=== PATIENT | female | born 1935 | race Caucasian/White ===

== ENCOUNTER 2016-09-18 12:28 | Inpatient (IN) | payer MEDICARE ==
[~2016-09-18] VITALS: Ht 142.2 cm; Wt 84.9 kg
[2016-09-18] MEDS ORDERED: IPRATRPIUM/ALBUTEROL 0.5/2.5MG 3 ML NEBU. NEB ONE (13:15)
--- NOTE | 2016-09-18 13:30 | RAD ---
Portable chest, 09/18/2016: History: Shortness of breath, productive cough Comparison is made to a study from 11/16/2012. There has been a previous median sternotomy. A left-sided transvenous pacemaker remains in place with 2 leads extending into the right heart. The heart size and pulmonary vascularity are normal. No pulmonary infiltrates are seen. There is no evidence of pleural fluid. IMPRESSION: No acute cardiopulmonary abnormality is detected.
--- NOTE | 2016-09-18 14:10 | EKG ---
[facility] [address] [place] [address] Test Date: 2016-09-18 Test Time: 13:38:27 Pat Name: RYAN DOSHI Department: Room: Gender: F Medical Chief Technician: : [id number] Requested By: ELUALIA SOUTH Order Number: [id number] Reading MD: Watson Pryor Measurements Intervals Tullos Rate: 71 P: 0 WI: 128 QRS: -62 QRSD: 184 T: 115 QT: 432 QTc: 475 Interpretive Statements SINUS RHYTHM V-PACED Electronically Signed On 10-01-2016 11:57:45 CDT by Watson Pryor
[2016-09-18 14:33] LABS: BASO # 0.1 x10^3/uL (0.0-0.2); BASO % 1 % (0-3); EOS % 1 % (0-3); HEMATOCRIT 42.9 % (36.0-47.0); LYMPH # 3.2 x10^3/uL (1.0-4.8); LYMPH % 25 % (24-48); MEAN CORPUSCULAR HEMOGLOBIN 31 pg (25-35); MEAN CORPUSCULAR HGB CONC 33 g/dL (31-37); MEAN CORPUSCULAR VOLUME 95 fL (79-100); MONO % 8 % (0-9); NEUT % 65 % (31-73); PLATELET COUNT 161 x10^3/uL (140-400); RED BLOOD COUNT 4.53 x10^6/uL (3.50-5.40); RED CELL DISTRIBUTION WIDTH 13.8 % (11.5-14.5); WHITE BLOOD COUNT 12.6 x10^3/uL (4.0-11.0)
[2016-09-18 14:54] LABS: CREATININE 0.6 mg/dL (0.6-1.0); GFR 96.4
[2016-09-18 15:02] LABS: ALBUMIN 3.5 g/dL (3.4-5.0); DIRECT BILIRUBIN 0.2 mg/dL (0.0-0.2); TOTAL BILIRUBIN 0.4 mg/dL (0.2-1.0); TOTAL PROTEIN 6.7 g/dL (6.4-8.2)
[2016-09-18 15:23] LABS: CKMB MASS 0.8 ng/mL (0.0-3.6); CREATINE KINASE 41 U/L (26-192)
--- NOTE | 2016-09-18 15:37 | PHYS DOC ---
Past Medical History Past Medical History: Hypertension, Other Additional Past Medical Histor: hard of hearing, tremors Past Surgical History: Pacemaker Additional Past Surgical Histo: x4 bypass, kidney stone removal Alcohol Use: None Drug Use: None Adult General Chief Complaint Chief Complaint: SHORTNESS OF BREATH HPI HPI Patient is a 80 year old female brought to the ED by her daughter with the complaint of shortness of air and coughing for more than a week. She was seen a week ago in the doctor's office and given antibiotics and steroids, she has finished those, her symptoms are no better. She has CPAP at home with oxygen and has been using it although she usually is not on oxygen. She has a nebulizer at home and has been using it. She has never smoked, she has no history of COPD or asthma. PCP Dr. Manju Buckner Review of Systems Review of Systems Constitutional: Denies fever or chills [] Eyes: Denies change in visual acuity, redness, or eye pain [] HENT: Denies nasal congestion or sore throat [] Respiratory: As in history of present illness Cardiovascular: She has not had chest pain that sounds cardiac GI: Denies abdominal pain, nausea, vomiting, bloody stools or diarrhea [] : Denies dysuria or hematuria [] Musculoskeletal: Denies back pain or joint pain [] Integument: Denies rash or skin lesions [] Neurologic: Denies headache, focal weakness or sensory changes [] Current Medications Current Medications Current Medications Medications (Trade) Dose Ordered Sig/Wolfgang Start Time Stop Time Status Last Admin Dose Admin Albuterol/ Ipratropium (Duoneb) 3 ml 1X ONCE 09/18/16 13:15 09/18/16 13:16 DC 09/18/16 13:26 3 ML Allergies Allergies Allergies Coded Allergies Type Severity Reaction Last Updated Verified No Known Drug Allergies 04/05/14 No Physical Exam Physical Exam Constitutional: Well developed, well nourished, coughing very consistently, somewhat dyspneic at rest on the cart HENT: Normocephalic, atraumatic, bilateral external ears normal, nose normal. [] Eyes: conjunctiva normal, no discharge. [] Neck: Normal range of motion, no stridor. [] Cardiovascular:Heart rate regular rhythm, no murmur [] Lungs & Thorax: Moderately decreased breath sounds throughout, prolonged expiratory phase, expiratory wheezes throughout Abdomen: Bowel sounds normal, soft, no tenderness, no masses, no pulsatile masses. [] Skin: Warm, dry, no erythema, no rash. [] Back: No tenderness, no CVA tenderness. [] Extremities: No tenderness, no cyanosis, no clubbing, ROM intact, no edema. [] Neurologic: Alert and oriented X 3, normal motor function, normal sensory function, no focal deficits noted. [] Current Patient Data Vital Signs Vital Signs Date Time Temp Pulse Resp B/P Pulse Ox O2 Delivery O2 Flow Rate FiO2 09/18/16 15:20 68 20 125/69 95 Room Air 09/18/16 12:47 98.8 98.8 Lab Values Laboratory Tests Test 09/18/16 14:20 White Blood Count 12.6x10^3/uL (4.0-11.0) H Red Blood Count 4.53x10^6/uL (3.50-5.40) Hemoglobin 14.0g/dL (12.0-15.5) Hematocrit 42.9% (36.0-47.0) Mean Corpuscular Volume 95fL (79-100) Mean Corpuscular Hemoglobin 31pg (25-35) Mean Corpuscular Hemoglobin Concent 33g/dL (31-37) Red Cell Distribution Width 13.8% (11.5-14.5) Platelet Count 161x10^3/uL (140-400) Neutrophils (%) (Auto) 65% (31-73) Lymphocytes (%) (Auto) 25% (24-48) Monocytes (%) (Auto) 8% (0-9) Eosinophils (%) (Auto) 1% (0-3) Basophils (%) (Auto) 1% (0-3) Neutrophils # (Auto) 8.2x10^3uL (1.8-7.7) H Lymphocytes # (Auto) 3.2x10^3/uL (1.0-4.8) Monocytes # (Auto) 1.0x10^3/uL (0.0-1.1) Eosinophils # (Auto) 0.1x10^3/uL (0.0-0.7) Basophils # (Auto) 0.1x10^3/uL (0.0-0.2) Sodium Level 141mmol/L (136-145) Potassium Level 4.0mmol/L (3.5-5.1) Chloride Level 104mmol/L (98-107) Carbon Dioxide Level 28mmol/L (21-32) Anion Gap 9 (6-14) Blood Urea Nitrogen 20mg/dL (7-20) Creatinine 0.6mg/dL (0.6-1.0) Estimated GFR (Cockcroft-Gault) 96.4 Glucose Level 105mg/dL (70-99) H Calcium Level 10.0mg/dL (8.5-10.1) Total Bilirubin 0.4mg/dL (0.2-1.0) Direct Bilirubin 0.2mg/dL (0.0-0.2) Aspartate Amino Transferase (AST) 31U/L (15-37) Alanine Aminotransferase (ALT) 55U/L (14-59) Alkaline Phosphatase 58U/L (46-116) Creatine Kinase 41U/L (26-192) Creatine Kinase MB (Mass) 0.8ng/mL (0.0-3.6) Creatine Kinase MB Relative Index % (0-4) Troponin I Quantitative < 0.017ng/mL (0.000-0.055) DM-Iml-A-Type Natriuretic Peptide 280pg/mL (0-449) Total Protein 6.7g/dL (6.4-8.2) Albumin 3.5g/dL (3.4-5.0) Laboratory Tests 09/18/16 14:20 Laboratory Tests 09/18/16 14:20 EKG EKG 12-lead EKG read by me. Pacemaker paced rhythm with prolonged QRS and resulting repolarization abnormalities, no STEMI. 1338 [] Radiology/Procedures Radiology/Procedures One view portable chest x-ray read by me, clear, no infiltrates [] Course & Med Decision Making Course & Med Decision Making Pertinent Labs and Imaging studies reviewed. (See chart for details) 80-year-old female who just completed a course of antibiotics and steroids presents with continued cough and wheezing. She has no history of COPD or asthma. She was given DuoNeb nebulized treatment and states it didn't help much but she did stop coughing and she does appear to be more comfortable. Although she has no history of COPD or asthma, she is wheezing and I think we should treat her as such. She was given IV Solu-Medrol in the ED. I discussed the case with Dr. Figueroa, [facility], who will admit the patient. I wrote bridge orders. [] Dragon Disclaimer Dragon Disclaimer This electronic medical record was generated, in whole or in part, using a voice recognition dictation system. Departure Departure Impression: Primary Impression: Dyspnea Disposition: ADMITTED INPATIENT Admitting Physician: Bahman Figueroa Condition: STABLE Referrals: MANJU BUCKNER MD (PCP) EULALIA SOUTH MD Sep 18, 2016 15:37
[2016-09-18] MEDS ORDERED: methylPREDNISolone SOD SUCC PF 125 MG/2 ML VIAL. IV ONE (15:45)
[2016-09-18] MEDS ORDERED: IOHEXOL 300 MG/ML 75 ML VIAL IV ONE (16:00)
--- NOTE | 2016-09-18 16:36 | RAD ---
CT study of the chest with contrast Indications: Cough for 3 days with shortness of air. Dyspnea. Comparison: Chest CT dated May 04, 2012. Technique: After IV infusion of 75 mL of Omnipaque 300, helical CT scanning of the chest was performed. PQRS Compliance Statement: One or more of the following individualized dose reduction techniques were utilized for this examination: 1. Automated exposure control 2. Adjustment of the mA and/or kV according to patient size 3. Use of iterative reconstruction technique Findings: There is ectasia of the ascending aorta measuring 4 cm in greatest AP or transverse dimension. This has decreased in size. The caliber was aneurysmal previously measuring up to 5.5 cm. The heart size is at the upper limits of normal. A sternotomy and postoperative changes of the heart are evident. No pericardial effusion is seen. No enlarged thoracic lymphadenopathy is seen. A small hiatal hernia is seen. No adrenal mass is evident. Gallstones are seen. Infrarenal abdominal aortic aneurysm is seen. This is not completely visualized in this study but it measures at least 5.1 cm in AP dimension. This appears to have increased in size. No pleural effusion or pneumothorax is seen. No lung consolidation is seen. Mild atelectasis of the posterior left costophrenic angle is seen. A granuloma of the right middle lobe is seen. The proximal bronchial tree is patent. No osteolytic process is seen. IMPRESSION: Previously seen aneurysm of the ascending aorta has decreased significantly in size and now is considered only ectatic measuring up to 4 cm in greatest AP or transverse dimension. However, there has been increase in size in the infrarenal abdominal aortic aneurysm measuring up to a least 5.1 cm in AP dimension. However, this aneurysm is not completely seen on this study. No acute lung infiltrate. Cholelithiasis.. Small hiatal hernia.
[2016-09-18] MEDS: IPRATRPIUM/ALBUTEROL 0.5/2.5MG 3 ML NEBU. NEB SCH ×2 (17:06→21:16)
--- NOTE | 2016-09-18 17:28 | PDOC1 ---
History and Physical Current Problem List Problem List Problems Medical Problems: (1) Dyspnea Status: Acute Current Medications Current Medications Current Medications Medications (Trade) Dose Ordered Sig/Wolfgang Start Time Stop Time Status Last Admin Dose Admin Albuterol/ Ipratropium (Duoneb) 3 ml RTQID 09/18/16 16:00 09/19/16 15:59 09/18/16 17:06 3 ML Iohexol (Omnipaque 300 Mg/ml) 75 ml 1X ONCE 09/18/16 16:00 09/18/16 16:01 DC 09/18/16 16:09 75 ML Methylprednisolone Sodium Succinate (Solu-Medrol 125mg Vial) 125 mg 1X ONCE 09/18/16 15:45 09/18/16 15:46 DC 09/18/16 15:45 125 MG Allergies Allergies Allergies Coded Allergies Type Severity Reaction Last Updated Verified No Known Drug Allergies 04/05/14 No ROS Review of System CONSTITUTIONAL: No fever or chills EYES: No recent changes SKIN: No rash or itching CARDIOVASCULAR: No chest pain, syncope, palpitations, or edema RESPIRATORY: SOB or cough GASTROINTESTINAL: No nausea, vomiting or abdominal pain NEUROLOGICAL: No headaches or weakness ENDOCRINE: No cold or heat intolerance GENITOURINARY: No urgency or frequency of urination MUSCULOSKELETAL: No back pain or joint pain LYMPHATICS: No enlarged lymph nodes PSYCHIATRIC: No anxiety or depression Physical Exam Physical Exam GEN.: apparent distress. Alert and oriented. times 3 HEENT: Head is normocephalic, atraumatic NECK: Supple. no JVD LUNGS: Clear to auscultation. increased effort HEART: RRR, S1, S2 present. Peripheral pulses intact ABDOMEN: Soft, nontender. Positive bowel sounds. EXTREMITIES: Without any cyanosis. NEUROLOGIC: Normal speech, normal tone PSYCHIATRIC: Normal affect, normal mood. SKIN: no wounds visible, Vitals Vitals Vital Signs Date Time Temp Pulse Resp B/P Pulse Ox O2 Delivery O2 Flow Rate FiO2 09/18/16 17:06 96 Room Air 09/18/16 16:20 68 20 171/93 09/18/16 12:47 98.8 98.8 Labs Labs Laboratory Tests Test 09/18/16 14:20 White Blood Count 12.6x10^3/uL (4.0-11.0) Red Blood Count 4.53x10^6/uL (3.50-5.40) Hemoglobin 14.0g/dL (12.0-15.5) Hematocrit 42.9% (36.0-47.0) Mean Corpuscular Volume 95fL (79-100) Mean Corpuscular Hemoglobin 31pg (25-35) Mean Corpuscular Hemoglobin Concent 33g/dL (31-37) Red Cell Distribution Width 13.8% (11.5-14.5) Platelet Count 161x10^3/uL (140-400) Neutrophils (%) (Auto) 65% (31-73) Lymphocytes (%) (Auto) 25% (24-48) Monocytes (%) (Auto) 8% (0-9) Eosinophils (%) (Auto) 1% (0-3) Basophils (%) (Auto) 1% (0-3) Neutrophils # (Auto) 8.2x10^3uL (1.8-7.7) Lymphocytes # (Auto) 3.2x10^3/uL (1.0-4.8) Monocytes # (Auto) 1.0x10^3/uL (0.0-1.1) Eosinophils # (Auto) 0.1x10^3/uL (0.0-0.7) Basophils # (Auto) 0.1x10^3/uL (0.0-0.2) Sodium Level 141mmol/L (136-145) Potassium Level 4.0mmol/L (3.5-5.1) Chloride Level 104mmol/L (98-107) Carbon Dioxide Level 28mmol/L (21-32) Anion Gap 9 (6-14) Blood Urea Nitrogen 20mg/dL (7-20) Creatinine 0.6mg/dL (0.6-1.0) Estimated GFR (Cockcroft-Gault) 96.4 Glucose Level 105mg/dL (70-99) Calcium Level 10.0mg/dL (8.5-10.1) Total Bilirubin 0.4mg/dL (0.2-1.0) Direct Bilirubin 0.2mg/dL (0.0-0.2) Aspartate Amino Transf (AST/SGOT) 31U/L (15-37) Alanine Aminotransferase (ALT/SGPT) 55U/L (14-59) Alkaline Phosphatase 58U/L (46-116) Creatine Kinase 41U/L (26-192) Creatine Kinase MB (Mass) 0.8ng/mL (0.0-3.6) Creatine Kinase MB Relative Index % (0-4) Troponin I Quantitative < 0.017ng/mL (0.000-0.055) VS-Mkp-N-Type Natriuretic Peptide 280pg/mL (0-449) Total Protein 6.7g/dL (6.4-8.2) Albumin 3.5g/dL (3.4-5.0) Laboratory Tests Test 09/18/16 14:20 White Blood Count 12.6x10^3/uL (4.0-11.0) Red Blood Count 4.53x10^6/uL (3.50-5.40) Hemoglobin 14.0g/dL (12.0-15.5) Hematocrit 42.9% (36.0-47.0) Mean Corpuscular Volume 95fL (79-100) Mean Corpuscular Hemoglobin 31pg (25-35) Mean Corpuscular Hemoglobin Concent 33g/dL (31-37) Red Cell Distribution Width 13.8% (11.5-14.5) Platelet Count 161x10^3/uL (140-400) Neutrophils (%) (Auto) 65% (31-73) Lymphocytes (%) (Auto) 25% (24-48) Monocytes (%) (Auto) 8% (0-9) Eosinophils (%) (Auto) 1% (0-3) Basophils (%) (Auto) 1% (0-3) Neutrophils # (Auto) 8.2x10^3uL (1.8-7.7) Lymphocytes # (Auto) 3.2x10^3/uL (1.0-4.8) Monocytes # (Auto) 1.0x10^3/uL (0.0-1.1) Eosinophils # (Auto) 0.1x10^3/uL (0.0-0.7) Basophils # (Auto) 0.1x10^3/uL (0.0-0.2) Sodium Level 141mmol/L (136-145) Potassium Level 4.0mmol/L (3.5-5.1) Chloride Level 104mmol/L (98-107) Carbon Dioxide Level 28mmol/L (21-32) Anion Gap 9 (6-14) Blood Urea Nitrogen 20mg/dL (7-20) Creatinine 0.6mg/dL (0.6-1.0) Estimated GFR (Cockcroft-Gault) 96.4 Glucose Level 105mg/dL (70-99) Calcium Level 10.0mg/dL (8.5-10.1) Total Bilirubin 0.4mg/dL (0.2-1.0) Direct Bilirubin 0.2mg/dL (0.0-0.2) Aspartate Amino Transf (AST/SGOT) 31U/L (15-37) Alanine Aminotransferase (ALT/SGPT) 55U/L (14-59) Alkaline Phosphatase 58U/L (46-116) Creatine Kinase 41U/L (26-192) Creatine Kinase MB (Mass) 0.8ng/mL (0.0-3.6) Creatine Kinase MB Relative Index % (0-4) Troponin I Quantitative < 0.017ng/mL (0.000-0.055) NY-Eue-K-Type Natriuretic Peptide 280pg/mL (0-449) Total Protein 6.7g/dL (6.4-8.2) Albumin 3.5g/dL (3.4-5.0) VTE Prophylaxis Ordered VTE Prophylaxis Devices: Yes VTE Pharmacological Prophylaxi: Yes ONI KESSLER MD Sep 18, 2016 17:28
[2016-09-18] MEDS ORDERED: ACETAMINOPHEN 325 MG TABLET. PO PRN (17:30)
[2016-09-18] MEDS ORDERED: ONDANSETRON PF 4 MG/2 ML VIAL. IV PRN (17:30)
[2016-09-18] MEDS ORDERED: HYDROCODONE/APAP 5/325MG TABLET. PO PRN (17:30)
[2016-09-18] MEDS ORDERED: hydrALAZINE 20 MG/ML VIAL. IVP PRN (17:30)
[2016-09-18] MEDS ORDERED: ALBUTEROL SULFATE 2.5 MG/3 ML NEBU. NEB PRN (17:30)
[2016-09-18] MEDS ORDERED: GUAIFENESIN DM 200MG/20MG 10 ML SYRUP. PO PRN (22:45)
--- NOTE | 2016-09-18 23:46 | ACF ---
Admission Forms Criteria COPD Clinical Indications for Admission to Inpatient Care (Place 'X' for any and all applicable criteria): Admission is indicated for ANY ONE of the following (1)(2)(3): [ ]I. Acute exacerbation by high-risk comorbidity (e.g., pneumonia, dysrhythmia, heart failure, pleural effusion, pneumothorax) or severe underlying COPD (e.g., steroid dependent) [X]II. Inpatient admission required rather than observation care (see Chronic Obstructive Pulmonary Disease: Observation Care) because of ANY ONE of the following: [X]a) New or pre-existing signs or symptoms of COPD (eg, dyspnea or Tachypnea at rest or with minimal activity) that persist despite outpatient and observation care treatment [ ]b) New-onset hypoxemia (room air SaO2 less than 90%, PO2 less than 60 mm Hg (8.0 kPa)) that persists despite outpatient and observation care treatment [ ]c) Worsening of pre-existing hypoxemia (eg, new or increased requirement for supplemental oxygen to maintain oxygenation at baseline level) that persists despite outpatient and observation care treatment, with oxygen treatment needs performable only in acute inpatient setting [ ]d) Hypercarbia (PCO2 greater than 40 mm Hg (5.3 kPa))-induced respiratory acidosis (pH less than 7.35) that persists despite outpatient and observation care treatment [ ]e) Supplemental oxygen or respiratory treatments for over 24 hours that are performable only in acute inpatient setting [ ]f) Chest tube placement with active evacuation (e.g., suction, drainage) (5) [ ]g) Other condition, treatment or monitoring requiring inpatient admission [ ]III. Planned invasive surgical or diagnostic procedures requiring acute- care hospitalization [ ]IV. Acute respiratory failure (e.g., uncompensated hypercarbia, severe hypoxemia) [ ]V. Severe comorbid condition (e.g., severe steroid myopathy, acute vertebral fracture) that has acutely worsened pulmonary function [ ]. Confusion state, lethargy, obtundation, stupor or coma Extended stay beyond goal length of stay may be needed for (31)(32): [ ]a ) Respiratory Failure. [ ]b) Severe or persisting hypoxemia or hypercarbia [ ]c) Severe or persistent dyspnea [ ]d) Comorbidities (e.g. chronic heart failure, atrial fibrillation with rapid response, pneumonia) [ ]e) Malnutrition The original [facility] content created by [facility] has been revised. The portions of the content which have been revised are identified through the use of italic text or in bold, and [facility] has neither reviewed nor approved the modified material. All other unmodified content is copyright [facility]. Please see references footnoted in the original [facility] edition 2016 Admission Criteria Met?: Yes LUCAS SEGUNDO. Sep 18, 2016 23:46
[2016-09-19] VITALS (8 sets, daily range): BP systolic 116–167; BP diastolic 60–84
--- NOTE | 2016-09-19 00:04 | HP ---
ADMIT DATE: 09/18/2016 CHIEF COMPLAINT: Shortness of breath. HISTORY OF PRESENT ILLNESS: This is a 80-year-old female patient with prior history of hypertension, presented to the ER with shortness of breath and respiratory distress. The patient has been complaining of some cough, dry in nature. She was seen by primary care doctor who prescribed her some antibiotics such as Zithromax and prednisone; however, the patient's symptoms did not improve. She uses a CPAP machine at home. Also she was using some nebulizers at home; however, she could not recall the names of the medications. The patient states her [id number] has the names of the medications. PAST MEDICAL HISTORY: Hypertension, questionable coronary artery disease. PAST SURGICAL HISTORY: Pacemaker placement and CABG. SOCIAL HISTORY: Never smoked, no alcohol, no drug abuse. FAMILY HISTORY: Hypertension. REVIEW OF SYSTEMS: Please see electronic H and P. PHYSICAL EXAMINATION: Please see electronic H and P. LABORATORY FINDINGS: CBC within normal limits. Chemistry within normal limits including first set of troponin 0.017 and CK of 41. IMAGING STUDIES: CT of the chest showed previously seen ascending aortic aneurysm, size 4 cm, and abdominal aortic aneurysm, infrarenal, measuring around 5.1 cm. Chest x-ray, no acute process seen. PLAN: 1. Respiratory distress, possibly due to viral bronchitis. 2. Intractable cough. 3. Hypertension. 4. Ascending aortic ectasia, size 4 cm. 5. Infrarenal abdominal aortic aneurysm, size 5 cm, both are chronic. PLAN: 1. She has been admitted to the hospital for severe respiratory distress, apparently she is saturating well in room air; however, but due to intractable cough, the patient is feeling miserable, I will start her on IV steroids at this time and consult Pulmonology. 2. Sputum culture. 3. Supplemental oxygen as needed. 4. P.r.n. hydralazine for systolic blood pressure more than 170. 5. We will add amlodipine for blood pressure control. 6. Family member, [id number], will bring home medications ____. 7. Physical therapy and occupational therapy. 8. Pulmonology consultation for refractory symptoms. 9. CT chest revealed no any acute processing. 10. Periodic nebulization. 11. DVT prophylaxis. ONI KESSLER MD DR: NATE/juventino JOB#: [id number] / [id number]
[2016-09-19] MEDS: methylPREDNISolone SOD SUCC PF 40 MG/ML VIAL. IV SCH ×4 (01:58→21:09)
[2016-09-19] MEDS ORDERED: CARV6.252 PO (05:31)
[2016-09-19] MEDS ORDERED: PRIM50TA PO (05:31)
[2016-09-19] MEDS ORDERED: ATOR20TA58 PO (05:31)
[2016-09-19] MEDS ORDERED: LISI2.5T PO (05:31)
[2016-09-19] MEDS ORDERED: CALC600T4 PO (05:31)
[2016-09-19] MEDS ORDERED: ALEN70TA5 PO (05:31)
[2016-09-19] MEDS ORDERED: Vitamin D PO (05:31)
[2016-09-19] MEDS: IPRATRPIUM/ALBUTEROL 0.5/2.5MG 3 ML NEBU. NEB SCH ×3 (08:14→15:36)
[2016-09-19] MEDS: CALCIUM CARBONATE 500 MG TABLET PO SCH (09:00)
--- NOTE | 2016-09-19 12:12 | PDOC ---
PROGRESS NOTES Chief Complaint Chief Complaint cc: sob, cough COPD outpatient treatment failure. HTN Ascending aortic ectasia, size 4 cm (chronic) Infrarenal abdominal aortic aneurysm, size 5 cm (chronic) CPAP use ?sleep apnea CAD Pacemaker Prior CABG and PCI History of Present Illness History of Present Illness Patient seen and evaluated at bedside. Patient resting comfortably, in no apparent distress. (+) occasional cough. Patient states her breathing has improved since admission. Daughter not present. d/w nurse. Vitals Vitals Vital Signs Date Time Temp Pulse Resp B/P Pulse Ox O2 Delivery O2 Flow Rate FiO2 09/19/16 12:00 Room Air 09/19/16 08:16 94 09/19/16 07:00 96.5 70 18 167/84 96.5 Physical Exam General: Alert, Cooperative, No acute distress Heart: Regular rate, Normal S1 Lungs: Wheezing, Other (Diminished breaths sounds with bilateral expiratory wheezes. (+) cough. equal chest wall rise. negative accessory muscle use. ) Abdomen: Soft, No tenderness Extremities: No cyanosis, No edema Skin: No rashes, No significant lesion Labs LABS Laboratory Tests Test 09/18/16 14:20 White Blood Count 12.6x10^3/uL (4.0-11.0) Red Blood Count 4.53x10^6/uL (3.50-5.40) Hemoglobin 14.0g/dL (12.0-15.5) Hematocrit 42.9% (36.0-47.0) Mean Corpuscular Volume 95fL (79-100) Mean Corpuscular Hemoglobin 31pg (25-35) Mean Corpuscular Hemoglobin Concent 33g/dL (31-37) Red Cell Distribution Width 13.8% (11.5-14.5) Platelet Count 161x10^3/uL (140-400) Neutrophils (%) (Auto) 65% (31-73) Lymphocytes (%) (Auto) 25% (24-48) Monocytes (%) (Auto) 8% (0-9) Eosinophils (%) (Auto) 1% (0-3) Basophils (%) (Auto) 1% (0-3) Neutrophils # (Auto) 8.2x10^3uL (1.8-7.7) Lymphocytes # (Auto) 3.2x10^3/uL (1.0-4.8) Monocytes # (Auto) 1.0x10^3/uL (0.0-1.1) Eosinophils # (Auto) 0.1x10^3/uL (0.0-0.7) Basophils # (Auto) 0.1x10^3/uL (0.0-0.2) Sodium Level 141mmol/L (136-145) Potassium Level 4.0mmol/L (3.5-5.1) Chloride Level 104mmol/L (98-107) Carbon Dioxide Level 28mmol/L (21-32) Anion Gap 9 (6-14) Blood Urea Nitrogen 20mg/dL (7-20) Creatinine 0.6mg/dL (0.6-1.0) Estimated GFR (Cockcroft-Gault) 96.4 Glucose Level 105mg/dL (70-99) Calcium Level 10.0mg/dL (8.5-10.1) Total Bilirubin 0.4mg/dL (0.2-1.0) Direct Bilirubin 0.2mg/dL (0.0-0.2) Aspartate Amino Transf (AST/SGOT) 31U/L (15-37) Alanine Aminotransferase (ALT/SGPT) 55U/L (14-59) Alkaline Phosphatase 58U/L (46-116) Creatine Kinase 41U/L (26-192) Creatine Kinase MB (Mass) 0.8ng/mL (0.0-3.6) Creatine Kinase MB Relative Index % (0-4) Troponin I Quantitative < 0.017ng/mL (0.000-0.055) HX-Arw-U-Type Natriuretic Peptide 280pg/mL (0-449) Total Protein 6.7g/dL (6.4-8.2) Albumin 3.5g/dL (3.4-5.0) Review of Systems Review of Systems (+) sob, improved (+) nonproductive cough Denies chest pain, abdominal pain, n/v/d, dizziness/lightheadedness, or fever/ chills. Assessment and Plan Assessmemt and Plan Problems Medical Problems: (1) Dyspnea Status: Acute Assessment: 1. Respiratory distress secondary to COPD exacerbation vs. viral bronchitis, POA 2. Intractable dry cough. 3. Hypertension. 4. Ascending aortic ectasia, size 4 cm. 5. Infrarenal abdominal aortic aneurysm, size 5 cm PLAN: 1. ) continue duonebs treatments, steroids, and mucolytics. Maintain O2 saturation >90%. start incentive spirometry 2.) consult pulmonology, recommendations appreciated. 3.) Hold abx for now; defer to pulmonology recommendations 4.) continue home medications. Antihypertensives PRN 5.) f/u on vaccine status. 6.) PT/OT 7.) monitor AM labs 8.) swallow evaluation per speech to assess for silent aspiration 8.) DVT ppx: lovenox Problems: Comment Review of Relevant I have reviewed the following items reyes (where applicable) has been applied. Labs Laboratory Tests Test 09/18/16 14:20 White Blood Count 12.6x10^3/uL (4.0-11.0) Red Blood Count 4.53x10^6/uL (3.50-5.40) Hemoglobin 14.0g/dL (12.0-15.5) Hematocrit 42.9% (36.0-47.0) Mean Corpuscular Volume 95fL (79-100) Mean Corpuscular Hemoglobin 31pg (25-35) Mean Corpuscular Hemoglobin Concent 33g/dL (31-37) Red Cell Distribution Width 13.8% (11.5-14.5) Platelet Count 161x10^3/uL (140-400) Neutrophils (%) (Auto) 65% (31-73) Lymphocytes (%) (Auto) 25% (24-48) Monocytes (%) (Auto) 8% (0-9) Eosinophils (%) (Auto) 1% (0-3) Basophils (%) (Auto) 1% (0-3) Neutrophils # (Auto) 8.2x10^3uL (1.8-7.7) Lymphocytes # (Auto) 3.2x10^3/uL (1.0-4.8) Monocytes # (Auto) 1.0x10^3/uL (0.0-1.1) Eosinophils # (Auto) 0.1x10^3/uL (0.0-0.7) Basophils # (Auto) 0.1x10^3/uL (0.0-0.2) Sodium Level 141mmol/L (136-145) Potassium Level 4.0mmol/L (3.5-5.1) Chloride Level 104mmol/L (98-107) Carbon Dioxide Level 28mmol/L (21-32) Anion Gap 9 (6-14) Blood Urea Nitrogen 20mg/dL (7-20) Creatinine 0.6mg/dL (0.6-1.0) Estimated GFR (Cockcroft-Gault) 96.4 Glucose Level 105mg/dL (70-99) Calcium Level 10.0mg/dL (8.5-10.1) Total Bilirubin 0.4mg/dL (0.2-1.0) Direct Bilirubin 0.2mg/dL (0.0-0.2) Aspartate Amino Transf (AST/SGOT) 31U/L (15-37) Alanine Aminotransferase (ALT/SGPT) 55U/L (14-59) Alkaline Phosphatase 58U/L (46-116) Creatine Kinase 41U/L (26-192) Creatine Kinase MB (Mass) 0.8ng/mL (0.0-3.6) Creatine Kinase MB Relative Index % (0-4) Troponin I Quantitative < 0.017ng/mL (0.000-0.055) FY-Hvm-O-Type Natriuretic Peptide 280pg/mL (0-449) Total Protein 6.7g/dL (6.4-8.2) Albumin 3.5g/dL (3.4-5.0) Laboratory Tests Test 09/18/16 14:20 White Blood Count 12.6x10^3/uL (4.0-11.0) Red Blood Count 4.53x10^6/uL (3.50-5.40) Hemoglobin 14.0g/dL (12.0-15.5) Hematocrit 42.9% (36.0-47.0) Mean Corpuscular Volume 95fL (79-100) Mean Corpuscular Hemoglobin 31pg (25-35) Mean Corpuscular Hemoglobin Concent 33g/dL (31-37) Red Cell Distribution Width 13.8% (11.5-14.5) Platelet Count 161x10^3/uL (140-400) Neutrophils (%) (Auto) 65% (31-73) Lymphocytes (%) (Auto) 25% (24-48) Monocytes (%) (Auto) 8% (0-9) Eosinophils (%) (Auto) 1% (0-3) Basophils (%) (Auto) 1% (0-3) Neutrophils # (Auto) 8.2x10^3uL (1.8-7.7) Lymphocytes # (Auto) 3.2x10^3/uL (1.0-4.8) Monocytes # (Auto) 1.0x10^3/uL (0.0-1.1) Eosinophils # (Auto) 0.1x10^3/uL (0.0-0.7) Basophils # (Auto) 0.1x10^3/uL (0.0-0.2) Sodium Level 141mmol/L (136-145) Potassium Level 4.0mmol/L (3.5-5.1) Chloride Level 104mmol/L (98-107) Carbon Dioxide Level 28mmol/L (21-32) Anion Gap 9 (6-14) Blood Urea Nitrogen 20mg/dL (7-20) Creatinine 0.6mg/dL (0.6-1.0) Estimated GFR (Cockcroft-Gault) 96.4 Glucose Level 105mg/dL (70-99) Calcium Level 10.0mg/dL (8.5-10.1) Total Bilirubin 0.4mg/dL (0.2-1.0) Direct Bilirubin 0.2mg/dL (0.0-0.2) Aspartate Amino Transf (AST/SGOT) 31U/L (15-37) Alanine Aminotransferase (ALT/SGPT) 55U/L (14-59) Alkaline Phosphatase 58U/L (46-116) Creatine Kinase 41U/L (26-192) Creatine Kinase MB (Mass) 0.8ng/mL (0.0-3.6) Creatine Kinase MB Relative Index % (0-4) Troponin I Quantitative < 0.017ng/mL (0.000-0.055) DL-Xen-B-Type Natriuretic Peptide 280pg/mL (0-449) Total Protein 6.7g/dL (6.4-8.2) Albumin 3.5g/dL (3.4-5.0) Medications Current Medications Albuterol/ Ipratropium (Duoneb) 3 ml 1X ONCE NEB Last administered on t 13:26; Start 09/18/16 at 13:15; Stop 09/18/16 at 13:16; Status DC Methylprednisolone Sodium Succinate (Solu-Medrol 125mg Vial) 125 mg 1X ONCE IV Last administered on 09/18/16 15:45; Start 09/18/16 at 15:45; Stop 09/18/16 at 15:46; Status DC Albuterol/ Ipratropium (Duoneb) 3 ml RTQID NEB Last administered on 09/19/16 11:59; Start 09/18/16 at 16:00; Stop 09/19/16 at 15:59 Iohexol (Omnipaque 300 Mg/ml) 75 ml 1X ONCE IV Last administered on 09/18/16 16:09; Start 09/18/16 at 16:00; Stop 09/18/16 at 16:01; Status DC Acetaminophen (Tylenol) 325 mg PRN Q6HRS PRN PO MILD PAIN / TEMP; Start at 17:30 Acetaminophen/ Hydrocodone Bitart (Lortab 5/325) 1 tab PRN Q6HRS PRN PO MODERATE TO SEVERE PAIN; Start 09/18/16 at 17:30 Hydralazine HCl (Apresoline) 10 mg PRN Q4HRS PRN IVP ELEVATED BP, SEE COMMENTS ; Start 09/18/16 at 17:30 Ondansetron HCl (Zofran) 4 mg PRN Q8HRS PRN IV NAUSEA/VOMITING; Start 09/18/16 at 17:30 Albuterol Sulfate (Ventolin Neb Soln) 2.5 mg PRN Q4HRS PRN NEB SHORTNESS OF BREATH; Start 09/18/16 at 17:30 Methylprednisolone Sodium Succinate (Solu-Medrol 40mg Vial) 40 mg Q8HRS IV Last administered on 09/19/16 08:10; Start 09/18/16 at 22:00 Guaifenesin (Robitussin Dm) 10 ml PRN Q6HRS PRN PO COUGH; Start 09/18/16 at 22: 45 Active Scripts Active Reported Calcium (Calcium Carbonate) 600 Mg Tablet 1,200 Mg PO DAILY [Vitamin D] 2,000 Intlu PO DAILY Alendronate Sodium 70 Mg Tablet 1 Tab PO WEEKLY Primidone 50 Mg Tablet 50 Mg PO TID Lisinopril 2.5 Mg Tablet 1 Tab PO DAILY Atorvastatin Calcium 20 Mg Tablet 20 Mg PO HS Carvedilol 6.25 Mg Tablet 1 Tab PO BID Vitals/I & O Vital Sign - Last 24 Hours 09/18/16 09/18/16 09/18/16 09/18/16 12:47 13:26 14:20 15:20 Temp 98.8 98.8 Pulse 73 70 68 Resp 24 20 20 B/P 107/65 142/74 125/69 Pulse Ox 97 95 95 O2 Delivery Room Air Room Air Room Air Room Air 09/18/16 09/18/16 09/18/16 09/18/16 16:20 17:06 17:20 18:20 Pulse 68 64 Resp 20 20 20 B/P 171/93 156/90 169/86 Pulse Ox 96 96 96 97 O2 Delivery Room Air Room Air Room Air Room Air 09/18/16 09/18/16 09/18/16 09/19/16 19:20 20:20 21:16 01:15 Temp 98.1 98.1 Pulse 66 68 71 Resp 22 21 22 B/P 169/84 166/81 122/80 Pulse Ox 95 96 94 95 O2 Delivery Room Air Room Air Room Air Room Air 09/19/16 09/19/16 09/19/16 09/19/16 02:53 07:00 08:16 12:00 Temp 98.1 96.5 98.1 96.5 Pulse 79 70 Resp 20 18 B/P 140/74 167/84 Pulse Ox 95 95 94 O2 Delivery BiPAP/CPAP Room Air Room Air Intake and Output 09/18/16 09/18/16 09/19/16 15:00 23:00 07:00 Intake Total 120 ml Output Total 475 ml Balance -355 ml SARKIS SHAH III DO Sep 19, 2016 12:12
--- NOTE | 2016-09-19 13:09 | PDOC ---
PULMONARY PROGRESS NOTES Vitals Vital Signs Date Time Temp Pulse Resp B/P Pulse Ox O2 Delivery O2 Flow Rate FiO2 09/19/16 12:51 99.2 79 12 116/65 94 Room Air 99.2 Lungs: Wheezing, Other (Diminished breaths sounds with bilateral expiratory wheezes. (+) cough. equal chest wall rise. negative accessory muscle use. ) Labs Laboratory Tests Test 09/18/16 14:20 White Blood Count 12.6x10^3/uL (4.0-11.0) Red Blood Count 4.53x10^6/uL (3.50-5.40) Hemoglobin 14.0g/dL (12.0-15.5) Hematocrit 42.9% (36.0-47.0) Mean Corpuscular Volume 95fL (79-100) Mean Corpuscular Hemoglobin 31pg (25-35) Mean Corpuscular Hemoglobin Concent 33g/dL (31-37) Red Cell Distribution Width 13.8% (11.5-14.5) Platelet Count 161x10^3/uL (140-400) Neutrophils (%) (Auto) 65% (31-73) Lymphocytes (%) (Auto) 25% (24-48) Monocytes (%) (Auto) 8% (0-9) Eosinophils (%) (Auto) 1% (0-3) Basophils (%) (Auto) 1% (0-3) Neutrophils # (Auto) 8.2x10^3uL (1.8-7.7) Lymphocytes # (Auto) 3.2x10^3/uL (1.0-4.8) Monocytes # (Auto) 1.0x10^3/uL (0.0-1.1) Eosinophils # (Auto) 0.1x10^3/uL (0.0-0.7) Basophils # (Auto) 0.1x10^3/uL (0.0-0.2) Sodium Level 141mmol/L (136-145) Potassium Level 4.0mmol/L (3.5-5.1) Chloride Level 104mmol/L (98-107) Carbon Dioxide Level 28mmol/L (21-32) Anion Gap 9 (6-14) Blood Urea Nitrogen 20mg/dL (7-20) Creatinine 0.6mg/dL (0.6-1.0) Estimated GFR (Cockcroft-Gault) 96.4 Glucose Level 105mg/dL (70-99) Calcium Level 10.0mg/dL (8.5-10.1) Total Bilirubin 0.4mg/dL (0.2-1.0) Direct Bilirubin 0.2mg/dL (0.0-0.2) Aspartate Amino Transf (AST/SGOT) 31U/L (15-37) Alanine Aminotransferase (ALT/SGPT) 55U/L (14-59) Alkaline Phosphatase 58U/L (46-116) Creatine Kinase 41U/L (26-192) Creatine Kinase MB (Mass) 0.8ng/mL (0.0-3.6) Creatine Kinase MB Relative Index % (0-4) Troponin I Quantitative < 0.017ng/mL (0.000-0.055) YD-Dnu-M-Type Natriuretic Peptide 280pg/mL (0-449) Total Protein 6.7g/dL (6.4-8.2) Albumin 3.5g/dL (3.4-5.0) Laboratory Tests Test 09/18/16 14:20 White Blood Count 12.6x10^3/uL (4.0-11.0) Red Blood Count 4.53x10^6/uL (3.50-5.40) Hemoglobin 14.0g/dL (12.0-15.5) Hematocrit 42.9% (36.0-47.0) Mean Corpuscular Volume 95fL (79-100) Mean Corpuscular Hemoglobin 31pg (25-35) Mean Corpuscular Hemoglobin Concent 33g/dL (31-37) Red Cell Distribution Width 13.8% (11.5-14.5) Platelet Count 161x10^3/uL (140-400) Neutrophils (%) (Auto) 65% (31-73) Lymphocytes (%) (Auto) 25% (24-48) Monocytes (%) (Auto) 8% (0-9) Eosinophils (%) (Auto) 1% (0-3) Basophils (%) (Auto) 1% (0-3) Neutrophils # (Auto) 8.2x10^3uL (1.8-7.7) Lymphocytes # (Auto) 3.2x10^3/uL (1.0-4.8) Monocytes # (Auto) 1.0x10^3/uL (0.0-1.1) Eosinophils # (Auto) 0.1x10^3/uL (0.0-0.7) Basophils # (Auto) 0.1x10^3/uL (0.0-0.2) Sodium Level 141mmol/L (136-145) Potassium Level 4.0mmol/L (3.5-5.1) Chloride Level 104mmol/L (98-107) Carbon Dioxide Level 28mmol/L (21-32) Anion Gap 9 (6-14) Blood Urea Nitrogen 20mg/dL (7-20) Creatinine 0.6mg/dL (0.6-1.0) Estimated GFR (Cockcroft-Gault) 96.4 Glucose Level 105mg/dL (70-99) Calcium Level 10.0mg/dL (8.5-10.1) Total Bilirubin 0.4mg/dL (0.2-1.0) Direct Bilirubin 0.2mg/dL (0.0-0.2) Aspartate Amino Transf (AST/SGOT) 31U/L (15-37) Alanine Aminotransferase (ALT/SGPT) 55U/L (14-59) Alkaline Phosphatase 58U/L (46-116) Creatine Kinase 41U/L (26-192) Creatine Kinase MB (Mass) 0.8ng/mL (0.0-3.6) Creatine Kinase MB Relative Index % (0-4) Troponin I Quantitative < 0.017ng/mL (0.000-0.055) EM-Jbt-R-Type Natriuretic Peptide 280pg/mL (0-449) Total Protein 6.7g/dL (6.4-8.2) Albumin 3.5g/dL (3.4-5.0) Medications Active Scripts Medications Dose Route/Sig Days Date Category Calcium (Calcium Carbonate) 600 Mg Tablet 1,200 Mg PO DAILY 09/19/16 Reported [Vitamin D] 2,000 Intlu PO DAILY 09/19/16 Reported Alendronate Sodium 70 Mg Tablet 1 Tab PO WEEKLY 09/19/16 Reported Primidone 50 Mg Tablet 50 Mg PO TID 09/19/16 Reported Lisinopril 2.5 Mg Tablet 1 Tab PO DAILY 09/19/16 Reported Atorvastatin Calcium 20 Mg Tablet 20 Mg PO HS 09/19/16 Reported Carvedilol 6.25 Mg Tablet 1 Tab PO BID 09/19/16 Reported Impression . FULL CONSULT DICTATED COUGH MAY BE PSYCHOGENIC VS ASPIRATION OR VOCAL CORD DYSPHONIA AGREE WITH TX FOR VIRAL TRACHEOBRONCHITIS VINAYAK HECTOR MD Sep 19, 2016 13:09
[2016-09-19] MEDS: BENZONATATE 100 MG CAPSULE. PO SCH ×2 (14:22→21:09)
[2016-09-19] MEDS: ENOXAPARIN 40 MG/0.4 ML SYRINGE. SQ SCH (14:22)
[2016-09-19] MEDS: CARVEDILOL 6.25 MG TABLET. PO SCH (17:52)
[2016-09-19] MEDS: PRIMIDONE 50 MG TABLET PO SCH (17:52)
[2016-09-19] MEDS ORDERED: ATORVASTATIN CALCIUM 20 MG TABLET PO SCH (21:00)
[2016-09-20 04:49] LABS: BASO # 0.1 x10^3/uL (0.0-0.2); BASO % 0 % (0-3); EOS % 0 % (0-3); HEMATOCRIT 42.6 % (36.0-47.0); HEMOGLOBIN 13.7 g/dL (12.0-15.5); LYMPH % 12 % (24-48); MEAN CORPUSCULAR HEMOGLOBIN 31 pg (25-35); MEAN CORPUSCULAR HGB CONC 32 g/dL (31-37); MEAN CORPUSCULAR VOLUME 95 fL (79-100); MONO % 4 % (0-9); NEUT % 85 % (31-73); PLATELET COUNT 170 x10^3/uL (140-400); RED BLOOD COUNT 4.49 x10^6/uL (3.50-5.40); RED CELL DISTRIBUTION WIDTH 14.1 % (11.5-14.5); WHITE BLOOD COUNT 17.1 x10^3/uL (4.0-11.0)
[2016-09-20 05:46] LABS: CALCIUM 9.4 mg/dL (8.5-10.1); CREATININE 0.8 mg/dL (0.6-1.0); GFR 69.2; POTASSIUM 4.2 mmol/L (3.5-5.1)
[2016-09-20 05:54] LABS: MAGNESIUM 2.5 mg/dL (1.8-2.4); PHOSPHORUS 2.8 mg/dL (2.6-4.7)
[2016-09-20] MEDS: methylPREDNISolone SOD SUCC PF 40 MG/ML VIAL. IV SCH (05:57)
--- NOTE | 2016-09-20 06:47 | CONS ---
DATE OF CONSULTATION: 09/19/2016 ATTENDING PHYSICIAN: Dr. Figueroa. CONSULTING PHYSICIAN: Vinayak Guevara MD. REASON FOR CONSULTATION: The patient seen in pulmonary consultation at the request of Dr. Milner for shortness of air. HISTORY OF PRESENT ILLNESS: The patient is a 80-year-old that presented with shortness of air. She has been having complaints of dry cough and paroxysmal coughing spells. She has had multiple rounds of antibiotics and prednisone at home with no significant improvement. She uses CPAP for obstructive sleep apnea ____ oxygen supplementation. She also had some nebulized treatments at home, none of the above it seems to help. She was admitted. I was asked to see her in consultation for further evaluation and management. PAST MEDICAL HISTORY: Coronary artery disease, status post coronary artery bypass grafting; essential tremor, status post pacemaker; previous kidney stone removal. PAST SURGICAL HISTORY: As above. SOCIAL HISTORY: She has never smoked. Denies any excessive caffeine intake. There is no prior history of asthma. REVIEW OF SYSTEMS: As indicated above, otherwise, a 10-point system was reviewed and negative. CONSTITUTIONAL: No fever or chills. EYES: No changes in vision or acuity. HEENT: No nasal discharge. No nasal congestion. No sore throat. RESPIRATORY: As indicated above. CARDIOVASCULAR: Some chest discomfort from the paroxysm of coughing spells. GASTROINTESTINAL: No nausea, vomiting or diarrhea. No reflux symptomatology. GENITOURINARY: Denies any dysuria or frequency. MUSCULOSKELETAL: Some lower extremity pain, which is not new. SKIN: Denies any skin lesions. NEUROLOGIC: No headaches, diplopia, or blurred vision. ALLERGIES: AMOXICILLIN AND SULFA. FAMILY HISTORY: No family history of asthma. PHYSICAL EXAMINATION: VITAL SIGNS: Stable. O2 saturation was greater than 92%. She is currently on room air. At one point I had the patient cough. She had paroxysmal coughing spells and could not break it almost as if it was psychogenic in nature. HEENT: Eyes, the sclerae were nonicteric. NECK: Jugular venous distention was not elevated. No lymphadenopathy. CHEST: Full expansion. LUNGS: Adequate airway flow with no wheezes. CARDIOVASCULAR: Regular rate and rhythm with S1, S2, no S3. ABDOMEN: Soft, nontender, nondistended. EXTREMITIES: No clubbing, cyanosis or edema. NEUROLOGIC: The patient was awake, alert, following commands. A detailed neuro exam was not performed. LABORATORY DATA: Reviewed. White count was slightly elevated. Electrolytes were normal. CT chest, no acute infiltrate. IMPRESSION: 1. Paroxysmal coughing spell, suspect secondary to recent viral tracheobronchitis, possible psychogenic in nature. 2. Dyspnea related to the above and generalized weakness. 3. Coronary artery disease with previous coronary artery bypass grafting. 4. Essential tremor. 5. Hypertension. PLAN: 1. Continue current IV steroids. 2. Tessalon Perles. 3. Avoid caffeine. 4. P.r.n. albuterol. 5. If cough persists, may require speech evaluation for possibility of vocal cord dysphonia or mild aspiration. I do appreciate the privilege in sharing in the patient's care. VINAYAK GUEVARA MD DR: ZEESHAN/juventino JOB#: [id number] / [id number]
[2016-09-20 07:00] VITALS: BP 175/86
[2016-09-20] MEDS: IPRATRPIUM/ALBUTEROL 0.5/2.5MG 3 ML NEBU. NEB SCH (07:45)
[2016-09-20] MEDS: BENZONATATE 100 MG CAPSULE. PO SCH (08:08)
[2016-09-20] MEDS: CALCIUM CARBONATE 500 MG TABLET PO SCH (08:09)
[2016-09-20] MEDS: PRIMIDONE 50 MG TABLET PO SCH ×2 (08:09→12:23)
[2016-09-20] MEDS: CARVEDILOL 6.25 MG TABLET. PO SCH (08:10)
[2016-09-20] MEDS ORDERED: CHOLECALCIFEROL (VITAMIN D3) 1,000 UNIT TABLET PO SCH (09:00)
[2016-09-20] MEDS ORDERED: LISINOPRIL 2.5 MG TABLET PO SCH (09:00)
[2016-09-20 10:28] LABS: PLT ESTIMATE ADEQUATE (ADEQUATE)
[2016-09-20 11:00] VITALS: BP 156/85
--- NOTE | 2016-09-20 11:36 | PDOC ---
PROGRESS NOTES Chief Complaint Chief Complaint cc: sob, cough COPD outpatient treatment failure. HTN Ascending aortic ectasia, size 4 cm (chronic) Infrarenal abdominal aortic aneurysm, size 5 cm (chronic) CPAP use ?sleep apnea CAD Pacemaker Prior CABG and PCI History of Present Illness History of Present Illness Patient seen and evaluated at bedside. Patient resting comfortably, in no apparent distress. Patient states her overall status has improved compared to yesterday. (+) SOA with conversation and minimal coughing. Per occupational therapist, patient is ambulating, stopping minimally to catch her breath yet without hypoxia or respiratory distress. She is eager for discharge; offered patient [facility] for further evaluation and treatment, but she prefers disposition to home with continued home health. d/w nurse, PT/OT, and case management. Vitals Vitals Vital Signs Date Time Temp Pulse Resp B/P Pulse Ox O2 Delivery O2 Flow Rate FiO2 09/20/16 08:10 75 175/86 09/20/16 07:46 95 Room Air 09/20/16 07:00 97.2 18 97.2 Physical Exam General: Alert, Cooperative, No acute distress, Other (SOB with conversation. ) Heart: Regular rate, Normal S1 Lungs: Wheezing, Other (Diminished breaths sounds (+) cough. equal chest wall rise. negative accessory muscle use. ) Abdomen: Soft, No tenderness Extremities: No clubbing, No cyanosis, No edema Skin: No rashes, No significant lesion Labs LABS Laboratory Tests Test 09/20/16 04:20 White Blood Count 17.1x10^3/uL (4.0-11.0) Red Blood Count 4.49x10^6/uL (3.50-5.40) Hemoglobin 13.7g/dL (12.0-15.5) Hematocrit 42.6% (36.0-47.0) Mean Corpuscular Volume 95fL (79-100) Mean Corpuscular Hemoglobin 31pg (25-35) Mean Corpuscular Hemoglobin Concent 32g/dL (31-37) Red Cell Distribution Width 14.1% (11.5-14.5) Platelet Count 170x10^3/uL (140-400) Neutrophils (%) (Auto) 85% (31-73) Lymphocytes (%) (Auto) 12% (24-48) Monocytes (%) (Auto) 4% (0-9) Eosinophils (%) (Auto) 0% (0-3) Basophils (%) (Auto) 0% (0-3) Neutrophils # (Auto) 14.4x10^3uL (1.8-7.7) Lymphocytes # (Auto) 2.0x10^3/uL (1.0-4.8) Monocytes # (Auto) 0.6x10^3/uL (0.0-1.1) Eosinophils # (Auto) 0.0x10^3/uL (0.0-0.7) Basophils # (Auto) 0.1x10^3/uL (0.0-0.2) Segmented Neutrophils % 84% (35-66) Lymphocytes % 13% (24-48) Monocytes % 3% (0-10) Platelet Estimate Adequate (ADEQUATE) Sodium Level 141mmol/L (136-145) Potassium Level 4.2mmol/L (3.5-5.1) Chloride Level 105mmol/L (98-107) Carbon Dioxide Level 24mmol/L (21-32) Anion Gap 12 (6-14) Blood Urea Nitrogen 20mg/dL (7-20) Creatinine 0.8mg/dL (0.6-1.0) Estimated GFR (Cockcroft-Gault) 69.2 Glucose Level 184mg/dL (70-99) Calcium Level 9.4mg/dL (8.5-10.1) Phosphorus Level 2.8mg/dL (2.6-4.7) Magnesium Level 2.5mg/dL (1.8-2.4) Review of Systems Review of Systems (+) SOB, improved. patient confirms she has sob at baseline. utilizes a cpap at home and has emergency O2 just in case. (+) cough (+) generalized weakness, improved Denies chest pain, abdominal pain, dizziness/lightheadedness, n/v/d, dysuria, or fever/chills. Assessment and Plan Assessmemt and Plan Problems Medical Problems: (1) Dyspnea Status: Acute Assessment: 1. Respiratory distress secondary to COPD exacerbation vs. viral bronchitis, POA 2. Intractable dry cough, improving 3. Hypertension. 4. Ascending aortic ectasia, size 4 cm. 5. Infrarenal abdominal aortic aneurysm, size 5 cm 6. leukocytosis ( currently on solumedrol) PLAN: 1. ) continue duonebs treatments and mucolytics; taper steroids. Maintain O2 saturation >90%. 2.) consult pulmonology, recommendations appreciated. 3.) disposition to [facility] vs. Home with HH, pending case management review and recommendations. disposition if agreeable with subspeciality. 4.) continue home medications. Antihypertensives PRN 5.) PT/OT 6.) DVT ppx: lovenox 7.) activity and diet as tolerated. Problems: Comment Review of Relevant I have reviewed the following items reyes (where applicable) has been applied. Labs Laboratory Tests Test 09/18/16 14:20 09/20/16 04:20 White Blood Count 12.6x10^3/uL (4.0-11.0) 17.1x10^3/uL (4.0-11.0) Red Blood Count 4.53x10^6/uL (3.50-5.40) 4.49x10^6/uL (3.50-5.40) Hemoglobin 14.0g/dL (12.0-15.5) 13.7g/dL (12.0-15.5) Hematocrit 42.9% (36.0-47.0) 42.6% (36.0-47.0) Mean Corpuscular Volume 95fL (79-100) 95fL (79-100) Mean Corpuscular Hemoglobin 31pg (25-35) 31pg (25-35) Mean Corpuscular Hemoglobin Concent 33g/dL (31-37) 32g/dL (31-37) Red Cell Distribution Width 13.8% (11.5-14.5) 14.1% (11.5-14.5) Platelet Count 161x10^3/uL (140-400) 170x10^3/uL (140-400) Neutrophils (%) (Auto) 65% (31-73) 85% (31-73) Lymphocytes (%) (Auto) 25% (24-48) 12% (24-48) Monocytes (%) (Auto) 8% (0-9) 4% (0-9) Eosinophils (%) (Auto) 1% (0-3) 0% (0-3) Basophils (%) (Auto) 1% (0-3) 0% (0-3) Neutrophils # (Auto) 8.2x10^3uL (1.8-7.7) 14.4x10^3uL (1.8-7.7) Lymphocytes # (Auto) 3.2x10^3/uL (1.0-4.8) 2.0x10^3/uL (1.0-4.8) Monocytes # (Auto) 1.0x10^3/uL (0.0-1.1) 0.6x10^3/uL (0.0-1.1) Eosinophils # (Auto) 0.1x10^3/uL (0.0-0.7) 0.0x10^3/uL (0.0-0.7) Basophils # (Auto) 0.1x10^3/uL (0.0-0.2) 0.1x10^3/uL (0.0-0.2) Sodium Level 141mmol/L (136-145) 141mmol/L (136-145) Potassium Level 4.0mmol/L (3.5-5.1) 4.2mmol/L (3.5-5.1) Chloride Level 104mmol/L (98-107) 105mmol/L (98-107) Carbon Dioxide Level 28mmol/L (21-32) 24mmol/L (21-32) Anion Gap 9 (6-14) 12 (6-14) Blood Urea Nitrogen 20mg/dL (7-20) 20mg/dL (7-20) Creatinine 0.6mg/dL (0.6-1.0) 0.8mg/dL (0.6-1.0) Estimated GFR (Cockcroft-Gault) 96.4 69.2 Glucose Level 105mg/dL (70-99) 184mg/dL (70-99) Calcium Level 10.0mg/dL (8.5-10.1) 9.4mg/dL (8.5-10.1) Total Bilirubin 0.4mg/dL (0.2-1.0) Direct Bilirubin 0.2mg/dL (0.0-0.2) Aspartate Amino Transf (AST/SGOT) 31U/L (15-37) Alanine Aminotransferase (ALT/SGPT) 55U/L (14-59) Alkaline Phosphatase 58U/L (46-116) Creatine Kinase 41U/L (26-192) Creatine Kinase MB (Mass) 0.8ng/mL (0.0-3.6) Creatine Kinase MB Relative Index % (0-4) Troponin I Quantitative < 0.017ng/mL (0.000-0.055) DR-Lob-R-Type Natriuretic Peptide 280pg/mL (0-449) Total Protein 6.7g/dL (6.4-8.2) Albumin 3.5g/dL (3.4-5.0) Segmented Neutrophils % 84% (35-66) Lymphocytes % 13% (24-48) Monocytes % 3% (0-10) Platelet Estimate Adequate (ADEQUATE) Phosphorus Level 2.8mg/dL (2.6-4.7) Magnesium Level 2.5mg/dL (1.8-2.4) Laboratory Tests Test 09/20/16 04:20 White Blood Count 17.1x10^3/uL (4.0-11.0) Red Blood Count 4.49x10^6/uL (3.50-5.40) Hemoglobin 13.7g/dL (12.0-15.5) Hematocrit 42.6% (36.0-47.0) Mean Corpuscular Volume 95fL (79-100) Mean Corpuscular Hemoglobin 31pg (25-35) Mean Corpuscular Hemoglobin Concent 32g/dL (31-37) Red Cell Distribution Width 14.1% (11.5-14.5) Platelet Count 170x10^3/uL (140-400) Neutrophils (%) (Auto) 85% (31-73) Lymphocytes (%) (Auto) 12% (24-48) Monocytes (%) (Auto) 4% (0-9) Eosinophils (%) (Auto) 0% (0-3) Basophils (%) (Auto) 0% (0-3) Neutrophils # (Auto) 14.4x10^3uL (1.8-7.7) Lymphocytes # (Auto) 2.0x10^3/uL (1.0-4.8) Monocytes # (Auto) 0.6x10^3/uL (0.0-1.1) Eosinophils # (Auto) 0.0x10^3/uL (0.0-0.7) Basophils # (Auto) 0.1x10^3/uL (0.0-0.2) Segmented Neutrophils % 84% (35-66) Lymphocytes % 13% (24-48) Monocytes % 3% (0-10) Platelet Estimate Adequate (ADEQUATE) Sodium Level 141mmol/L (136-145) Potassium Level 4.2mmol/L (3.5-5.1) Chloride Level 105mmol/L (98-107) Carbon Dioxide Level 24mmol/L (21-32) Anion Gap 12 (6-14) Blood Urea Nitrogen 20mg/dL (7-20) Creatinine 0.8mg/dL (0.6-1.0) Estimated GFR (Cockcroft-Gault) 69.2 Glucose Level 184mg/dL (70-99) Calcium Level 9.4mg/dL (8.5-10.1) Phosphorus Level 2.8mg/dL (2.6-4.7) Magnesium Level 2.5mg/dL (1.8-2.4) Medications Current Medications Albuterol/ Ipratropium (Duoneb) 3 ml 1X ONCE NEB Last administered on 13:26; Start 09/18/16 at 13:15; Stop 09/18/16 at 13:16; Status DC Methylprednisolone Sodium Succinate (Solu-Medrol 125mg Vial) 125 mg 1X ONCE IV Last administered on 09/18/16 15:45; Start 09/18/16 at 15:45; Stop 09/18/16 at 15:46; Status DC Albuterol/ Ipratropium (Duoneb) 3 ml RTQID NEB Last administered on 09/20/16 07:45; Start 09/18/16 at 16:00; Stop 09/19/16 at 15:59; Status DC Iohexol (Omnipaque 300 Mg/ml) 75 ml 1X ONCE IV Last administered on 09/18/16 16:09; Start 09/18/16 at 16:00; Stop 09/18/16 at 16:01; Status DC Acetaminophen (Tylenol) 325 mg PRN Q6HRS PRN PO MILD PAIN / TEMP; Start at 17:30 Acetaminophen/ Hydrocodone Bitart (Lortab 5/325) 1 tab PRN Q6HRS PRN PO MODERATE TO SEVERE PAIN; Start 09/18/16 at 17:30 Hydralazine HCl (Apresoline) 10 mg PRN Q4HRS PRN IVP ELEVATED BP, SEE COMMENTS ; Start 09/18/16 at 17:30 Ondansetron HCl (Zofran) 4 mg PRN Q8HRS PRN IV NAUSEA/VOMITING; Start 09/18/16 at 17:30 Albuterol Sulfate (Ventolin Neb Soln) 2.5 mg PRN Q4HRS PRN NEB SHORTNESS OF BREATH Last administered on 09/19/16 19:32; Start 09/18/16 at 17:30 Methylprednisolone Sodium Succinate (Solu-Medrol 40mg Vial) 40 mg Q8HRS IV Last administered on 09/20/16 05:57; Start 09/18/16 at 22:00 Guaifenesin (Robitussin Dm) 10 ml PRN Q6HRS PRN PO COUGH; Start 09/18/16 at 22: 45 Enoxaparin Sodium (Lovenox 40mg Syringe) 40 mg Q24H SQ Last administered on 14:22; Start 09/19/16 at 13:00 Benzonatate (Tessalon Perle) 100 mg [id number] PO Last administered on 09/20/16 08 :08; Start 09/19/16 at 14:00 Atorvastatin Calcium (Lipitor) 20 mg HS PO Last administered on 09/19/16 21:09 ; Start 09/19/16 at 21:00 Carvedilol (Coreg) 6.25 mg BIDWMEALS PO Last administered on 09/20/16 08:10; Start 09/19/16 at 18:00 Lisinopril (Prinivil) 2.5 mg DAILY PO Last administered on 09/20/16 08:09; Start 09/20/16 at 09:00 Primidone (Mysoline) 50 mg TIDWMEALS PO Last administered on 09/20/16 08:09; Start 09/19/16 at 18:00 Calcium Carbonate/ Glycine (Oscal) 1,000 mg DAILY PO Last administered on 08:09; Start 09/19/16 at 09:00 Vitamin D (Vitamin D3) 2,000 unit DAILY PO Last administered on 09/20/16t 08:10 ; Start 09/20/16 at 09:00 Active Scripts Active Reported Calcium (Calcium Carbonate) 600 Mg Tablet 1,200 Mg PO DAILY [Vitamin D] 2,000 Intlu PO DAILY Alendronate Sodium 70 Mg Tablet 1 Tab PO WEEKLY Primidone 50 Mg Tablet 50 Mg PO TID Lisinopril 2.5 Mg Tablet 1 Tab PO DAILY Atorvastatin Calcium 20 Mg Tablet 20 Mg PO HS Carvedilol 6.25 Mg Tablet 1 Tab PO BID Vitals/I & O Vital Sign - Last 24 Hours 09/19/16 09/19/16 09/19/16 09/19/16 12:00 12:51 15:00 15:37 Temp 99.2 97.7 99.2 97.7 Pulse 79 74 Resp 05 25 B/P 116/65 117/60 Pulse Ox 94 97 O2 Delivery Room Air Room Air Room Air Room Air 09/19/16 09/19/16 09/19/16 09/19/16 17:52 19:00 19:33 23:00 Temp 98.7 98.7 98.7 98.7 Pulse 74 79 78 Resp B/P 117/60 131/69 143/76 Pulse Ox 95 97 92 O2 Delivery Room Air Room Air Room Air 09/20/16 09/20/16 09/20/16 09/20/16 07:00 07:46 08:09 08:10 Temp 97.2 97.2 Pulse 75 75 75 Resp 18 B/P 175/86 175/86 175/86 Pulse Ox 97 95 O2 Delivery Room Air Room Air Intake and Output 09/19/16 09/19/16 09/20/16 14:59 22:59 06:59 Intake Total 440 ml 1070 ml 240 ml Output Total 3 ml 3 ml Balance 440 ml 1067 ml 237 ml PABLONIAL K III DO Sep 20, 2016 11:36
[2016-09-20] MEDS: ENOXAPARIN 40 MG/0.4 ML SYRINGE. SQ SCH (12:24)
--- NOTE | 2016-09-20 16:16 | PDOC ---
PULMONARY PROGRESS NOTES Subjective PT NOT MORE SOA Vitals Vital Signs Date Time Temp Pulse Resp B/P Pulse Ox O2 Delivery O2 Flow Rate FiO2 09/20/16 11:00 97.8 75 18 156/85 92 Room Air 97.8 Lungs: Wheezing, Other (Diminished breaths sounds (+) cough. equal chest wall rise. negative accessory muscle use. ) Labs Laboratory Tests Test 09/20/16 04:20 White Blood Count 17.1x10^3/uL (4.0-11.0) Red Blood Count 4.49x10^6/uL (3.50-5.40) Hemoglobin 13.7g/dL (12.0-15.5) Hematocrit 42.6% (36.0-47.0) Mean Corpuscular Volume 95fL (79-100) Mean Corpuscular Hemoglobin 31pg (25-35) Mean Corpuscular Hemoglobin Concent 32g/dL (31-37) Red Cell Distribution Width 14.1% (11.5-14.5) Platelet Count 170x10^3/uL (140-400) Neutrophils (%) (Auto) 85% (31-73) Lymphocytes (%) (Auto) 12% (24-48) Monocytes (%) (Auto) 4% (0-9) Eosinophils (%) (Auto) 0% (0-3) Basophils (%) (Auto) 0% (0-3) Neutrophils # (Auto) 14.4x10^3uL (1.8-7.7) Lymphocytes # (Auto) 2.0x10^3/uL (1.0-4.8) Monocytes # (Auto) 0.6x10^3/uL (0.0-1.1) Eosinophils # (Auto) 0.0x10^3/uL (0.0-0.7) Basophils # (Auto) 0.1x10^3/uL (0.0-0.2) Segmented Neutrophils % 84% (35-66) Lymphocytes % 13% (24-48) Monocytes % 3% (0-10) Platelet Estimate Adequate (ADEQUATE) Sodium Level 141mmol/L (136-145) Potassium Level 4.2mmol/L (3.5-5.1) Chloride Level 105mmol/L (98-107) Carbon Dioxide Level 24mmol/L (21-32) Anion Gap 12 (6-14) Blood Urea Nitrogen 20mg/dL (7-20) Creatinine 0.8mg/dL (0.6-1.0) Estimated GFR (Cockcroft-Gault) 69.2 Glucose Level 184mg/dL (70-99) Calcium Level 9.4mg/dL (8.5-10.1) Phosphorus Level 2.8mg/dL (2.6-4.7) Magnesium Level 2.5mg/dL (1.8-2.4) Laboratory Tests Test 09/20/16 04:20 White Blood Count 17.1x10^3/uL (4.0-11.0) Red Blood Count 4.49x10^6/uL (3.50-5.40) Hemoglobin 13.7g/dL (12.0-15.5) Hematocrit 42.6% (36.0-47.0) Mean Corpuscular Volume 95fL (79-100) Mean Corpuscular Hemoglobin 31pg (25-35) Mean Corpuscular Hemoglobin Concent 32g/dL (31-37) Red Cell Distribution Width 14.1% (11.5-14.5) Platelet Count 170x10^3/uL (140-400) Neutrophils (%) (Auto) 85% (31-73) Lymphocytes (%) (Auto) 12% (24-48) Monocytes (%) (Auto) 4% (0-9) Eosinophils (%) (Auto) 0% (0-3) Basophils (%) (Auto) 0% (0-3) Neutrophils # (Auto) 14.4x10^3uL (1.8-7.7) Lymphocytes # (Auto) 2.0x10^3/uL (1.0-4.8) Monocytes # (Auto) 0.6x10^3/uL (0.0-1.1) Eosinophils # (Auto) 0.0x10^3/uL (0.0-0.7) Basophils # (Auto) 0.1x10^3/uL (0.0-0.2) Segmented Neutrophils % 84% (35-66) Lymphocytes % 13% (24-48) Monocytes % 3% (0-10) Platelet Estimate Adequate (ADEQUATE) Sodium Level 141mmol/L (136-145) Potassium Level 4.2mmol/L (3.5-5.1) Chloride Level 105mmol/L (98-107) Carbon Dioxide Level 24mmol/L (21-32) Anion Gap 12 (6-14) Blood Urea Nitrogen 20mg/dL (7-20) Creatinine 0.8mg/dL (0.6-1.0) Estimated GFR (Cockcroft-Gault) 69.2 Glucose Level 184mg/dL (70-99) Calcium Level 9.4mg/dL (8.5-10.1) Phosphorus Level 2.8mg/dL (2.6-4.7) Magnesium Level 2.5mg/dL (1.8-2.4) Medications Active Scripts Medications Dose Route/Sig Days Date Category Calcium (Calcium Carbonate) 600 Mg Tablet 1,200 Mg PO DAILY 09/19/16 Reported [Vitamin D] 2,000 Intlu PO DAILY 09/19/16 Reported Alendronate Sodium 70 Mg Tablet 1 Tab PO WEEKLY 09/19/16 Reported Primidone 50 Mg Tablet 50 Mg PO TID 09/19/16 Reported Lisinopril 2.5 Mg Tablet 1 Tab PO DAILY 09/19/16 Reported Atorvastatin Calcium 20 Mg Tablet 20 Mg PO HS 09/19/16 Reported Carvedilol 6.25 Mg Tablet 1 Tab PO BID 09/19/16 Reported Impression . IMPRESSION: 1. Paroxysmal coughing spell, suspect secondary to recent viral tracheobronchitis, possible psychogenic in nature. 2. Dyspnea related to the above and generalized weakness. 3. Coronary artery disease with previous coronary artery bypass grafting. 4. Essential tremor. 5. Hypertension. Plan . PT D/C HOME PRIOR TO MY VISIT VINAYAK HECTOR MD Sep 20, 2016 16:16
--- NOTE | 2016-09-23 03:52 | DS ---
DATE OF DISCHARGE: 09/20/2016 ADMISSION DIAGNOSES: Respiratory failure with chronic obstructive pulmonary disease. DISCHARGE DIAGNOSIS: Resolving respiratory failure. HOSPITAL COURSE: The patient is a pleasant 80-year-old female who presented with respiratory failure with COPD. She was admitted. We gave her IV steroids, breathing treatments, oxygen and empiric antibiotics. We consulted Pulmonary Medicine, did physical therapy, occupational therapy. She did well. We discharged to intermediate. DISPOSITION: Skilled. ACTIVITY: As tolerated. DIET: Low sodium. MEDICATIONS: Please see the MRAD. TOTAL TIME: 39 minutes. SARKIS SHAH DO DR: SAYDA/juventino JOB#: [id number] / [id number]
== END 2016-09-20 18:46 | disposition home health service (06) | DRG 191 ==
LOC: ER 12:28 → ED HOLD 15:37 → 5 NORTH 09-19 00:46
PROVIDERS: ADMIT Internal Medicine; ATTEND Internal Medicine
DX: J44.0 Chronic obstructive pulmonary disease with (acute) lower respiratory infection (principal); J96.10 Chronic respiratory failure, unspecified whether with hypoxia or hypercapnia; J20.8 Acute bronchitis due to other specified organisms; F44.4 Conversion disorder with motor symptom or deficit; G25.0 Essential tremor; G47.33 Obstructive sleep apnea (adult) (pediatric); I10 Essential (primary) hypertension; I25.10 Atherosclerotic heart disease of native coronary artery without angina pectoris; I71.4 Abdominal aortic aneurysm, without rupture; Z82.49 Family history of ischemic heart disease and other diseases of the circulatory system; Z95.0 Presence of cardiac pacemaker; Z87.442 Personal history of urinary calculi; Z95.1 Presence of aortocoronary bypass graft; Z88.1 Allergy status to other antibiotic agents; Z88.2 Allergy status to sulfonamides; J44.1 Chronic obstructive pulmonary disease with (acute) exacerbation
CPT/HCPCS: 36415; 71010; 71260; 80048; 80076; 82553; 83735; 83880; 84100; 84484; 85007; 85027; 93005; 94250; 94640; 94760; 96374; G0238; J1650; J2920; J2930; J7620; Q9967; 92526; 92610; 97535; 99285-25

== ENCOUNTER → 2017-05-27 | Outpatient (CLI) | payer MEDICARE ==
[~2017-05-27] MED LIST: ALEN70TA5 PO; ATOR20TA58 PO; CALC600T4 PO; CARV6.252 PO; LISI2.5T PO; PRIM50TA PO; Vitamin D PO
--- NOTE | 2017-05-27 17:35 | CARD ---
APPROVED REPORT EXAM: Two-dimensional and M-mode echocardiogram with Doppler and color Doppler. Other Information Quality : Fair INDICATION Aortic Valve Disease Surgery/Intervention Status/Post Aortic Valve Replacement: Bioprosthetic Date: 04/2012 2D DIMENSIONS RVDd2.9 (2.9-3.5cm)Left Atrium(2D)3.8 (1.6-4.0cm) IVSd1.2 (0.7-1.1cm)Aortic Root(2D)2.2 (2.0-3.7cm) LVDd2.9 (3.9-5.9cm)LVOT Diameter1.9 (1.8-2.4cm) PWd1.1 (0.7-1.1cm)LVDs2.1 (2.5-4.0cm) FS (%) 26.8 %SV17.9 ml LVEF(%)54.0 (>50%) Aortic Valve AoV Peak James.94.8cm/sAoV VTI16.7cm AO Peak GR.3.6mmHgLVOT Peak James.105.6cm/s AO Mean GR.2mmHgAVA (VMAX)3.23cm2 Mitral Valve MV E Wfqsogfr52.6cm/sMV E Peak Gr.6mmHg MV DECEL [id number] A Ifwdinwa913.2cm/s MV E Mean Gr.1mmHgMV LNU97ob E/A Ratio0.4MVA (PHT)2.43cm2 Tricuspid Valve TR P. Eezoljqj721ey/sRAP QALXYFSJ4pvFg TR Peak Gr.71cuLyPCTZ27mwIf Pulmonary Vein S1 Zolhwiuh76.6cm/sD2 Gcaxeztk46.4cm/s LEFT VENTRICLE The left ventricle is normal size. There is mild concentric left ventricular hypertrophy. The left ve ntricular systolic function is normal and the ejection fraction is within normal range. EF 55% Apical motion consistent with pacemaker activation, otherwise grossly normal. Transmitral Doppler flow farheen bhargav is Grade I-abnormal relaxation pattern. RIGHT VENTRICLE The right ventricle is normal size. The right ventricular systolic function is normal. There is a pac emaker lead in the right ventricle. ATRIA The left atrium size is normal. The right atrium size is normal. A pacemaker is seen in the right atr ium consistent with history. The interatrial septum is intact with no evidence for an atrial septal d efect or patent foramen ovale as noted on 2-D or Doppler imaging. AORTIC VALVE Doppler and Color Flow revealed no significant aortic regurgitation. There is no significant aortic v alvular stenosis. There is a bioprosthetic aortic valve prosthesis. Bioprosthesis leaflets are not we ll visualized. MITRAL VALVE The mitral valve is calcified and displays decreased opening. Posterior mitral annular calcification is moderate. There is no evidence of mitral valve prolapse. There is mild mitral valve stenosis. Calc ulated mitral valve area is 2.4 cm2 with maximum pressure gradient of 12 mmHg and mean pressure gradi ent of 3 mmHg. Doppler and Color-flow revealed trace mitral regurgitation. TRICUSPID VALVE The tricuspid valve is normal in structure and function. Doppler and Color Flow revealed physiologica l tricuspid regurgitation. The PA pressure was estimated at 31 mmHg. There is no tricuspid valve sten osis. PULMONIC VALVE Doppler and Color Flow revealed mild pulmonic valvular regurgitation. There is no pulmonic valvular s tenosis. GREAT VESSELS The aortic root is normal in size. The ascending aorta is not well seen. The IVC is normal in size an d collapses >50% with inspiration. PERICARDIAL EFFUSION There is no evidence of significant pericardial effusion. Critical Notification Critical Value: No <Conclusion> The left ventricular systolic function is normal and the ejection fraction is within normal range. EF 55% Apical motion consistent with pacemaker activation, otherwise grossly normal. There is a pacemaker lead in the right ventricle. There is a bioprosthetic aortic valve prosthesis. Bioprosthesis leaflets are not well visualized. There is mild mitral valve stenosis. Calculated mitral valve area is 2.4 cm2 with maximum pressure gr adient of 12 mmHg and mean pressure gradient of 3 mmHg.
== END | disposition home or self-care (01) ==
LOC: ECHO 12:50
PROVIDERS: ATTEND Internal Medicine Cardiovascular Disease
DX: I05.0 Rheumatic mitral stenosis (principal); Z95.0 Presence of cardiac pacemaker
CPT/HCPCS: 93306

== ENCOUNTER → 2018-10-28 | Outpatient (CLI) | payer MEDICARE ==
[2017-09-29 11:00] VITALS: BP 112/61
[~2018-10-28] MED LIST changes: -ALEN70TA5 PO; +ALEN70TA6 PO; +ASCO500C9 PO; +ASPI-630 PO; +CARV6.2511 PO; -CARV6.252 PO
--- NOTE | 2018-10-28 10:24 | CARD ---
MR#: [id number] Date of Study: 10/28/2018 Ordering Physician: ANEESH RANKIN, Referring Physician: ANEESH RANKIN, Tech: Kimmy Hou [facility] APPROVED REPORT EXAM: Two-dimensional and M-mode echocardiogram with Doppler and color Doppler. Other Information Quality : Technically LimitedHR: 70bpm Rhythm : PacemakerTechnically limited study due to body habitus. INDICATION AVR 2D DIMENSIONS RVDd3.2 (2.9-3.5cm)Left Atrium(2D)4.1 (1.6-4.0cm) IVSd1.1 (0.7-1.1cm)Aortic Root(2D)3.4 (2.0-3.7cm) LVDd4.2 (3.9-5.9cm)LVOT Diameter1.9 (1.8-2.4cm) PWd0.9 (0.7-1.1cm)LVDs3.1 (2.5-4.0cm) FS (%) 27.3 %SV42.2 ml LVEF(%)53.4 (>50%) M-Mode DIMENSIONS Left Atrium(MM)4.35 (2.5-4.0cm)Aortic Root3.52 (2.2-3.7cm) Aortic Valve AoV Peak James.104.3cm/sAoV VTI22.2cm AO Peak GR.4.3mmHgLVOT Peak James.92.1cm/s AO Mean GR.2mmHgAVA (VMAX)2.53cm2 TREVOR (VTI)2.50cm2 Mitral Valve MV E Vllfgbsr86.6cm/sMV E Peak Gr.10mmHg MV DECEL [id number] A Nnrnynns567.1cm/s MV E Mean Gr.3mmHgE/A Ratio0.6 Pulmonary Valve PV Peak Vgifkdnf676.8cm/s Tricuspid Valve TR P. Bmyxlxdm688qw/sRAP VXJEXMNS1jrNk TR Peak Gr.36wkSiBZMD68arQk LEFT VENTRICLE The left ventricle is normal size. Proximal septal thickening is noted. The left ventricular systolic function is normal. The Ejection Fraction is 55-60%. There is normal LV segmental wall motion. Trans mitral Doppler flow pattern is Grade I-abnormal relaxation pattern. RIGHT VENTRICLE The right ventricle is normal size. There is normal right ventricular wall thickness. The right ventr icular systolic function is normal. Pacer lead noted in RV/RA. ATRIA The left atrium is mildly dilated. The right atrium size is normal. The interatrial septum is intact with no evidence for an atrial septal defect or patent foramen ovale as noted on 2-D or Doppler imagi ng. AORTIC VALVE Bioprosthesis Aortic valve. Doppler and Color Flow revealed no significant aortic regurgitation. Ther e is no significant aortic valvular stenosis. The bioprosthetic aortic valve appears well seated. MITRAL VALVE Mitral annular calcification is moderate. There is no evidence of mitral valve prolapse. There is mil d mitral valve stenosis. Calculated mitral valve area is 1.5 cm2 with maximum pressure gradient of 10 mmHg and mean pressure gradient of 3.4 mmHg. Doppler and Color-flow revealed trace to mild mitral re gurgitation. TRICUSPID VALVE The tricuspid valve is normal in structure and function. Doppler and Color Flow revealed trace tricus pid regurgitation. The PA pressure was estimated at 23 mmHg. There is no tricuspid valve prolapse or vegetation. There is no tricuspid valve stenosis. PULMONIC VALVE The pulmonic valve is not well visualized. GREAT VESSELS The aortic root is normal in size. The ascending aorta is normal in size. The IVC is normal in size a nd collapses >50% with inspiration. PERICARDIAL EFFUSION There is no evidence of significant pericardial effusion. Critical Notification Critical Value: No <Conclusion> The left ventricular systolic function is normal. The Ejection Fraction is 55-60%. There is normal LV segmental wall motion. Transmitral Doppler flow pattern is Grade I-abnormal relaxation pattern. Pacer lead noted in RV/RA. The left atrium is mildly dilated. The bioprosthetic aortic valve appears well seated and functioning well. There is mild mitral valve stenosis. Trace to mild mitral regurgitation. Trace tricuspid regurgitation. The PA pressure was estimated at 23 mmHg. There is no evidence of significant pericardial effusion. Signed by : Driss Phan, Electronically Approved : 10/28/2018 10:24:05
== END | disposition home or self-care (01) ==
LOC: ECHO 08:49
PROVIDERS: ATTEND Internal Medicine Cardiovascular Disease
DX: I05.9 Rheumatic mitral valve disease, unspecified (principal); Z95.4 Presence of other heart-valve replacement
CPT/HCPCS: 93306

== ENCOUNTER → 2019-12-01 | Outpatient (CLI) | payer MEDICARE ==
[2017-09-29 11:00] VITALS: BP 112/61
--- NOTE | 2019-12-01 14:35 | CARD ---
MR#: [id number] Date of Study: 12/01/2019 Ordering Physician: ANEESH RANKIN, Referring Physician: ANEESH RANKIN, Tech: Jossie Muñiz [facility] APPROVED REPORT EXAM: Two-dimensional and M-mode echocardiogram with Doppler and color Doppler. Other Information Quality : Good INDICATION Aortic Valve Replacement-Porcine 2011 Surgery/Intervention Pacemaker: Date: 2011 CABG: Date: 2011 2D DIMENSIONS RVDd3.1 (2.9-3.5cm)Left Atrium(2D)3.5 (1.6-4.0cm) IVSd1.0 (0.7-1.1cm)Aortic Root(2D)2.5 (2.0-3.7cm) LVDd3.6 (3.9-5.9cm)LVOT Diameter2.0 (1.8-2.4cm) PWd1.1 (0.7-1.1cm)LVDs2.5 (2.5-4.0cm) FS (%) 29.0 %SV30.2 ml LVEF(%)56.7 (>50%) Aortic Valve AoV Peak James.122.0cm/sAoV VTI25.7cm AO Peak GR.6.0mmHgLVOT Peak James.105.7cm/s AO Mean GR.3mmHgAVA (VMAX)2.75cm2 TREVOR (VTI)2.60cm2 Mitral Valve MV E Vudwopid67.0cm/sMV DECEL AYJH752jy MV A Rwsttyje389.6cm/sE/A Ratio0.5 Tricuspid Valve TR P. Rvrejjry229pg/sRAP YLUHZGXX5wxGh TR Peak Gr.60mzNhSJXB83gyTp Pulmonary Vein S1 Rhwrqyqm95.0cm/sD2 Otkmwitm23.8cm/s LEFT VENTRICLE The left ventricle is normal size. There is normal left ventricular wall thickness. The left ventricu lar systolic function is normal. The Ejection Fraction is 55-60%. Apical motion consistent with pacem jose guadalupe activation. Transmitral Doppler flow pattern is Grade I-abnormal relaxation pattern. RIGHT VENTRICLE The right ventricle is normal size. The right ventricular systolic function is normal. There is a pac emaker lead in the right ventricle. ATRIA The left atrium size is normal. The right atrium size is normal. A pacemaker is seen in the right atr ium consistent with history. The interatrial septum is intact with no evidence for an atrial septal d efect or patent foramen ovale as noted on 2-D or Doppler imaging. AORTIC VALVE Doppler and Color Flow revealed no significant aortic regurgitation. Calculated aortic valve area is 2.6 cm2 with maximum pressure gradient of 6 mmHg and mean pressure gradient of 3 mmHg. The porcine pr osthetic aortic valve appears well seated. MITRAL VALVE The mitral valve is calcified but opens well. Mitral annular calcification is moderate to severe. The re is no evidence of mitral valve prolapse. There is no mitral valve stenosis. Doppler and Color-flow revealed trace to mild mitral regurgitation. TRICUSPID VALVE The tricuspid valve is normal in structure and function. Doppler and Color Flow revealed mild tricusp id regurgitation. There is mild to moderate pulmonary hypertension. The PA pressure was estimated at 40 mmHg. There is no tricuspid valve stenosis. PULMONIC VALVE The pulmonary valve is normal in structure and function. Doppler and Color Flow revealed mild pulmoni c valvular regurgitation. There is no pulmonic valvular stenosis. GREAT VESSELS The aortic root is normal in size. The ascending aorta is moderately dilated at 3.7 cm. The IVC is no rmal in size and collapses >50% with inspiration. PERICARDIAL EFFUSION There is no evidence of significant pericardial effusion. Critical Notification Critical Value: No <Conclusion> The left ventricular systolic function is normal. The Ejection Fraction is 55-60%. Transmitral Doppler flow pattern is Grade I-abnormal relaxation pattern. There is a pacemaker lead in the right atrium and ventricle. Bioprosthetic/porcine aortic valve appears well seated and functioning well. Trace to mild mitral regurgitation. Mild tricuspid regurgitation. The PA pressure was estimated at 40 mmHg. There is no evidence of significant pericardial effusion. Signed by : Driss Phan, Electronically Approved : 12/01/2019 14:35:29
== END | disposition home or self-care (01) ==
LOC: ECHO 09:19
PROVIDERS: ATTEND Internal Medicine Cardiovascular Disease
DX: I08.8 Other rheumatic multiple valve diseases (principal); I27.20 Pulmonary hypertension, unspecified; Z95.4 Presence of other heart-valve replacement; Z95.0 Presence of cardiac pacemaker
CPT/HCPCS: 93306

== ENCOUNTER → 2020-12-21 | Outpatient (CLI) | payer MEDICARE ==
[2017-09-29 11:00] VITALS: BP 112/61
[~2020-12-21] MED LIST changes: -ALEN70TA6 PO; +ALEN70TA71 PO; -CALC600T4 PO; +CALC600T60 PO
--- NOTE | 2020-12-21 16:54 | CARD ---
MR#: [id number] Date of Study: 12/21/2020 Ordering Physician: ANEESH RANKIN, Referring Physician: ANEESH RANKIN, Tech: Tatianna Dalyarelijewell, [facility] APPROVED REPORT EXAM: Two-dimensional and M-mode echocardiogram with Doppler and color Doppler. Other Information Quality : AverageHR: 70bpm Rhythm : Pacemaker INDICATION COPD Aortic Valve Disease Surgery/Intervention Status/Post Aortic Valve Replacement: Bioprosthetic Type: Pocine Date: 2011 Pacemaker: Date: 2011 CABG: Date: 2011 RISK FACTORS Hyperlipidemia 2D DIMENSIONS RVDd2.8 (2.9-3.5cm)Left Atrium(2D)4.0 (1.6-4.0cm) IVSd1.0 (0.7-1.1cm)Aortic Root(2D)2.9 (2.0-3.7cm) LVDd4.3 (3.9-5.9cm)LVOT Diameter1.9 (1.8-2.4cm) PWd0.9 (0.7-1.1cm)LVDs3.1 (2.5-4.0cm) FS (%) 28.2 %SV45.1 ml LVEF(%)54.8 (>50%) Aortic Valve AoV Peak James.130.4cm/sAoV VTI23.0cm AO Peak GR.6.8mmHgLVOT Peak James.96.9cm/s LVOT VTI 18.40cmAO Mean GR.3mmHg TREVOR (VMAX)1.19by3JDU (VTI)2.33cm2 Mitral Valve MV E Urmaljfi89.8cm/sMV DECEL PRIV415ku MV A Aqvvgghq920.0cm/sMV E Mean Gr.3mmHg MV TLL01voS/A Ratio0.5 MVA (PHT)4.36cm2 TDI E/Lateral E'8.0E/Medial E'15.3 Pulmonary Valve PV Peak Qleqmcbf76.9cm/sPV Peak Grad.3mmHg Tricuspid Valve TR P. Ffjrewkj532jj/sRAP GBSEOIEW4xzWl TR Peak Gr.32dmPrDRPK25mvUi Pulmonary Vein S1 Ofgllfpv82.9cm/sD2 Cbtheunf16.2cm/s PVa ixpwstiz088xcvx LEFT VENTRICLE The left ventricle is normal size. There is normal left ventricular wall thickness. The left ventricu lar systolic function is normal. The Ejection Fraction is 55-60%. There is normal LV segmental wall m otion. Transmitral Doppler flow pattern is Grade I-abnormal relaxation pattern. RIGHT VENTRICLE The right ventricle is normal size. There is normal right ventricular wall thickness. The right ventr icular systolic function is normal. There is a pacemaker lead in the right ventricle. ATRIA The left atrium size is normal. The right atrium size is normal. The interatrial septum is intact wit h no evidence for an atrial septal defect or patent foramen ovale as noted on 2-D or Doppler imaging. AORTIC VALVE Doppler and Color Flow revealed trace aortic regurgitation. There is no significant aortic valvular s tenosis. Calculated aortic valve area is 2.12 cm2 with maximum pressure gradient of 8 mmHg and mean p ressure gradient of 4 mmHg. There is a bioprosthetic aortic valve prosthesis. The prosthetic aortic v alve appears normal. MITRAL VALVE The mitral valve is moderately thickened. There is no evidence of mitral valve prolapse. There is no mitral valve stenosis mean gradient measuring 3.1 mmHg. Doppler and Color-flow revealed trace mitral regurgitation. TRICUSPID VALVE The tricuspid valve is normal in structure and function. Doppler and Color Flow revealed trace tricus pid regurgitation with an estimated PAP of 33 mmHg. There is no tricuspid valve stenosis. PULMONIC VALVE The pulmonic valve is not well visualized. Doppler and Color Flow revealed trace pulmonic valvular re gurgitation. GREAT VESSELS The aortic root is normal in size. The ascending aorta is normal in size. The IVC is normal in size a nd collapses >50% with inspiration. PERICARDIAL EFFUSION There is no evidence of significant pericardial effusion. Critical Notification Critical Value: No <Conclusion> The left ventricular systolic function is normal. The Ejection Fraction is 55-60%. There is normal LV segmental wall motion. Transmitral Doppler flow pattern is Grade I-abnormal relaxation pattern. Pacer wire noted RA/RV. Bioprosthetic aortic valve appears well seated and functioning well. Trace mitral regurgitation. Trace tricuspid regurgitation with an estimated PAP of 33 mmHg. There is no evidence of significant pericardial effusion. Signed by : Driss Pasnoori, Electronically Approved : 12/21/2020 16:53:53
== END ==
LOC: ECHO 07:55
PROVIDERS: ATTEND Internal Medicine Cardiovascular Disease
DX: Z95.4 Presence of other heart-valve replacement (principal)
CPT/HCPCS: 93306

== ENCOUNTER 2021-04-18 13:17 | Emergency (ER) | payer MEDICARE ==
[~2021-04-18] VITALS: Ht 142.2 cm; Wt 77.5 kg
[~2021-04-18 13:17] MED LIST changes: -LISI2.5T PO; +LISI2.5T12 PO
--- NOTE | 2021-04-18 13:34 | PHYS DOC ---
Past Medical History Past Medical History: CAD, Hypertension, Other Additional Past Medical Histor: hard of hearing, tremors Past Surgical History: Coronary Bypass Surgery, Hip Replacement, Hysterectomy, Pacemaker, Tubal ligation Additional Past Surgical Histo: x4 bypass, kidney stone removal Smoking Status: Never Smoker Alcohol Use: None Drug Use: None General Adult EDM: Chief Complaint: MULTIPLE COMPLAINTS HPI: HPI: Patient is a 85 year old here with report of bilateral inguinal discomfort, worse on the right than the left, which has progressed over the last few days. She also reports right upper chest wall/breast pain which began yesterday, is sharp and intermittent, worse with movement. She denies chest pressure or dyspnea, denies pleuritic pain. Denies cough or hemoptysis. Denies fevers or chills. She underwent AAA repair by vascular surgery at [facility] 6 days ago. She reportedly contacted the vascular surgery office and she was told to come here to this hospital. She denies redness, swelling, drainage or bleeding from her incision sites. She denies fevers or chills. She denies abdominal pain or back or flank pain. She denies dizziness or syncope. She denies numbness or tingling or motor weakness. She denies symptoms of claudication. She has no severe pain currently. Review of Systems: Review of Systems: Constitutional: Denies fever or chills. [] Eyes: Denies change in visual acuity. [] HENT: Denies nasal congestion or sore throat. [] Respiratory: Denies cough or shortness of breath. [] Cardiovascular: Reports right upper breast pain. Denies chest pain or pressure. She has chronic lower extremity edema, unchanged. GI: Denies abdominal pain, nausea, vomiting, or bowel habit changes. : Denies urinary symptoms, specifically no dysuria, no gross hematuria. She has mild overflow incontinence, unchanged. Musculoskeletal: Denies back pain or joint pain. [] Integument: Denies rash. Healing contusions of her bilateral inguinal and lower abdominal areas. Neurologic: Denies headache, focal weakness or sensory changes. [] Psychiatric: Denies depression or anxiety. [] Heart Score: C/O Chest Pain: Yes HEART Score for Chest Pain: HEART Score for Chest Pain Response (Comments) Value History Slighlty/Non-Suspicious 0 ECG Nonspecific Repolarizatio 1 Age > 65 2 Risk Factors >3 Risk Factors or Hx CAD 2 Troponin < Normal Limit 0 Total 5 Risk Factors: Risk Factors: DM, Current or recent (<one month) smoker, HTN, HLP, family history of CAD, obesity. Risk Scores: Score 0 - 3: 2.5% MACE over next 6 weeks - Discharge Home Score 4 - 6: 20.3% MACE over next 6 weeks - Admit for Clinical Observation Score 7 - 10: 72.7% MACE over next 6 weeks - Early Invasive Strategies Allergies: Allergies: Allergies Coded Allergies Type Severity Reaction Last Updated Verified Sulfa (Sulfonamide Antibiotics) Allergy Intermediate breaks out 09/24/17 Yes amoxicillin Allergy Intermediate MIGRAINE 09/24/17 Yes Physical Exam: PE: Constitutional: Well developed, well nourished, no acute distress, non-toxic appearance. She is chronically ill-appearing, but not acutely ill-appearing. HENT: Normocephalic, atraumatic, oropharynx is patent and clear. Mucous membranes moist. Eyes: Sclera are clear and anicteric. Neck: Trachea midline, no tenderness Cardiovascular:Heart rate regular rhythm, +2 dorsalis pedis and +2 radial pulses bilaterally. Bilateral, symmetric femoral pulses noted. Lungs & Thorax: Bilateral breath sounds clear to auscultation. Palpation of her right upper lateral breast reproduces her pain. No palpable crepitus or step-offs. Abdomen: Abdomen is obese, soft, nondistended, nontender to palpation. No palpable mass organomegaly noted. She has healing bruising of her bilateral lower pubic areas, bilateral inguinal areas and lower abdomen. No palpable hematoma or swelling. No warmth or erythema. Skin: Warm, dry, no erythema, no rash. Healing contusions of the bilateral inguinal areas and lower abdominal areas, as noted above. No warmth, no erythema, no open wounds. Bilateral inguinal incisions are small, clean, dry, intact without warmth, without erythema, without drainage, without bleeding. No palpable tenderness noted to incision sites. Back: No tenderness, no CVA tenderness. [] Extremities: No tenderness, no cyanosis, no clubbing, ROM intact, no edema. [] Neurologic: Alert and oriented X 3, normal motor function, normal sensory function, no focal deficits noted. [] Psychologic: Affect normal, judgement normal, mood normal. [] EKG: EKG: EKG is interpreted at 1421 Rhythm is sinus Rate is 71 bpm [place] is left No STEMI Radiology/Procedures: Radiology/Procedures: IMAGING REPORT Signed PATIENT: RYAN DOSHI ACCOUNT: [id number] : 1935 LOCATION: ER AGE: 85 SEX: F EXAM STATUS: REG ER ORD. PHYSICIAN: RK MARTINEZ DO REASON: chest pain, pelvic pain, recent AAA surgery PROCEDURE: CT ANGIO CHEST ABD PELVIS CTA of the chest, abdomen and pelvis without and with contrast 04/18/2021 CLINICAL HISTORY: Chest, abdominal and pelvic pain. Recent AAA repair. TECHNIQUE: Unenhanced contiguous, 2 mm axial sections were obtained through the chest abdomen and pelvis. After intravenous ministration 100 cc of Omnipaque 350, contiguous, 0.625 mm axial sections were seen through the chest, abdomen and pelvis. 3 mm reconstructed axial and 3-D MIP sagittal and coronal reconstructed images along with volume rendered 3-D reconstructed images were obtained. One or more of the following individualized dose reduction techniques were utilized for this study: 1. Automated exposure control. 2. Adjustment of the mA and/or kV according to patient size. 3. Use of iterative reconstruction technique. FINDINGS: Comparison studies dated 09/18/2016. The unenhanced CT images demonstrate a left-sided pacemaker unchanged in position. The patient appears to be post aortic valve replacement and CABG procedure. Scattered atherosclerotic plaque formation are seen involving the thoracic aorta and its branches. Extensive coronary artery calcifications are seen. Small calcified right hilar lymph nodes are noted. Bilateral nonobstructing renal calculi, left greater than right, are seen which measure 1 to 4 mm in size. On the postcontrast CTA images the thoracic aorta is noted to be tortuous but tapers normally. No focal aneurysm or dissection of the thoracic aorta is seen. The origins of the brachiocephalic, left common carotid and left subclavian arteries from the thoracic aortic arch are patent. The heart is mildly enlarged. No filling defect is seen within the major visualized branches of either pulmonary artery. A 3 mm calcified granuloma seen involving right upper lobe, inferiorly. Minimal dependent subsegmental atelectasis is seen bilaterally. No area of consolidation is seen. No pneumothorax or pleural effusion is noted. The liver parenchyma has a decreased attenuation consistent with fatty infiltrat ion. The liver is mildly enlarged measuring 19.3 cm in length. Calcified granulomas are seen scattered throughout the spleen. The pancreas, and adrenal glands are within normal limits. A heterogeneously enhancing rounded mass is seen projecting medially from the lower pole of the left kidney. This measures 2.5 cm in greatest diameter. It is concerning for renal cell carcinoma. A 8mm rounded low-attenuation lesion is seen involving the mid/lower pole of the right kidney. This likely represents a cyst. No further imaging evaluation is recommended. Calcified gallstones are seen scattered throughout the gallbladder which is contracted. No free fluid or free air is within the abdomen. There is no evidence of bowel obstruction. A fat-containing ventral hernia is seen medially superior to the umbilicus. This measures 5.9 cm in transverse diameter. CTA images demonstrate atherosclerotic calcification of the abdominal aorta and its branches. A stent graft extends across an aneurysm of the infrarenal abdominal aorta to the distal common iliac arteries. The residual aneurysm sac measures 6.2 cm in greatest transverse diameter and 25 cm in greatest AP diameter. Small collections of air are seen within the aneurysmal sac presumably related to the history of recent surgery. Coils are seen within the inferior aspect of the aneurysm sac, extending laterally. The stent graft is patent. The origins of both renal arteries are patent. The origins of the celiac trunk and superior mesenteric artery are patent. The common iliac arteries and their branches are patent. Faint contrast enhancement along the periphery of the superior aspect of aneurysm sac is seen on the arterial phase which becomes more pronounced and heterogeneous on the delayed images consistent with a type II endoleak. Contrast is seen within the anterior inferior aspect of the aneurysm sac projecting to the left of midline near the left common iliac component of the graft concerning for a type III endoleak. Images through the pelvis demonstrate the urinary bladder distended with urine. No free fluid is seen. The patient is post right CURTIS. Mild S-shaped curvature of the thoracolumbar spine is noted. Degenerative changes are seen involving the thoracic and throughout the lumbar spine along with the left hip. IMPRESSION:: 1. No acute abnormality is seen involving the chest. 2. 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 3. Findings concerning for a type III endoleak as discussed above. 3. 2.5 cm solid mass is seen involving the lower pole of the left kidney concerning for renal cell carcinoma. Electronically signed by: Raul Squires MD (04/18/2021 4:02 PM) [id number] DICTATED and SIGNED BY: RAUL SQUIRES MD DATE: 04/18/21 [id number] 0 Course & Med Decision Making: Course & Med Decision Making Pertinent Labs and Imaging studies reviewed. (See chart for details) The patient initially declined pain medication, though she ultimately agreed to give a dose of fentanyl, so this is given. She is resting comfortably. She declines any pain medication for discharge home. I discussed all the findings, differential diagnosis and plan of care with the patient. I discussed the CT findings with her vascular surgeon, Dr. Su, at [facility]. He is aware of the endoleak, which is chronic. He will see her as an outpatient next week. I explained this to the patient. Regarding the left renal mass, the patient is aware of this, and she is seeing oncology next week. She feels very comfortable going home. ED work-up is unremarkable for any other acute or life-threatening process at this time. Strict return precautions are given. She verbalizes understanding of all instructions given. Dragon Disclaimer: Dragon Disclaimer: This electronic medical record was generated, in whole or in part, using a voice recognition dictation system. Departure Departure Impression: Primary Impression: Postoperative pain Additional Impressions: Pain of right breast Endoleak of aortic graft Contusion of groin, left Contusion of groin, right Disposition: 01 HOME / SELF CARE / HOMELESS Condition: STABLE Referrals: MANJU AHN MD (PCP) Patient Instructions: Contusion, Pain Relief Preoperatively and Postoperatively Additional Instructions: Return to the ER for more severe pain, vomiting, dehydration, fever 100.4 or higher, severe skin redness, if you notice any bleeding or drainage from your incisions or for any other concerns. Your CT is stable, Dr. Su is aware of the findings, and you may call his office to schedule appointment to follow-up next week. Please keep your scheduled appointment with oncology next week for the mass on your kidney. RK MARTINEZ DO Apr 18, 2021 13:34
[2021-04-18 14:24] LABS: BASO % 1 % (0-3); EOS # 0.1 x10^3/uL (0.0-0.7); EOS % 1 % (0-3); HEMATOCRIT 35.2 % (36.0-47.0); HEMOGLOBIN 12.1 g/dL (12.0-15.5); LYMPH # 1.7 x10^3/uL (1.0-4.8); LYMPH % 26 % (24-48); MEAN CORPUSCULAR HEMOGLOBIN 33 pg (25-35); MEAN CORPUSCULAR HGB CONC 35 g/dL (31-37); MEAN CORPUSCULAR VOLUME 97 fL (79-100); MONO # 0.5 x10^3/uL (0.0-1.1); MONO % 8 % (0-9); NEUT # 4.4 x10^3/uL (1.8-7.7); NEUT % 64 % (31-73); PLATELET COUNT 125 x10^3/uL (140-400); RED BLOOD COUNT 3.64 x10^6/uL (3.50-5.40); RED CELL DISTRIBUTION WIDTH 14.3 % (11.5-14.5); WHITE BLOOD COUNT 6.8 x10^3/uL (4.0-11.0)
[2021-04-18 14:34] LABS: PROTHROMBIN TIME PATIENT 14.1 SEC (11.7-14.0)
[2021-04-18 14:41] LABS: CALCIUM 9.1 mg/dL (8.5-10.1); CREATININE 0.7 mg/dL (0.6-1.0); GFR 79.7; POTASSIUM 4.1 mmol/L (3.5-5.1)
[2021-04-18 14:45] LABS: ALBUMIN 3.3 g/dL (3.4-5.0); ALBUMIN/GLOBULIN RATIO 1.1 (1.0-1.7); TOTAL BILIRUBIN 0.6 mg/dL (0.2-1.0); TOTAL PROTEIN 6.4 g/dL (6.4-8.2)
[2021-04-18] MEDS ORDERED: IOHEXOL 350 MG/ML 100 ML VIAL. IV ONE (15:00)
[2021-04-18] MEDS ORDERED: fentaNYL PF VIAL 100 MCG/2 ML VIAL IVP ONE (15:45)
--- NOTE | 2021-04-18 16:05 | RAD ---
CTA of the chest, abdomen and pelvis without and with contrast 04/18/2021 CLINICAL HISTORY: Chest, abdominal and pelvic pain. Recent AAA repair. TECHNIQUE: Unenhanced contiguous, 2 mm axial sections were obtained through the chest abdomen and pel vis. After intravenous ministration 100 cc of Omnipaque 350, contiguous, 0.625 mm axial sections were seen through the chest, abdomen and pelvis. 3 mm reconstructed axial and 3-D MIP sagittal and elliott l reconstructed images along with volume rendered 3-D reconstructed images were obtained. One or more of the following individualized dose reduction techniques were utilized for this study: 1. Automated exposure control. 2. Adjustment of the mA and/or kV according to patient size. 3. Use of iterative reconstruction technique. FINDINGS: Comparison studies dated 09/18/2016. The unenhanced CT images demonstrate a left-sided pacemaker unchanged in position. The patient appear s to be post aortic valve replacement and CABG procedure. Scattered atherosclerotic plaque formation are seen involving the thoracic aorta and its branches. Extensive coronary artery calcifications are seen. Small calcified right hilar lymph nodes are noted. Bilateral nonobstructing renal calculi, left greater than right, are seen which measure 1 to 4 mm in size. On the postcontrast CTA images the thoracic aorta is noted to be tortuous but tapers normally. No foc al aneurysm or dissection of the thoracic aorta is seen. The origins of the brachiocephalic, left com mon carotid and left subclavian arteries from the thoracic aortic arch are patent. The heart is mildl y enlarged. No filling defect is seen within the major visualized branches of either pulmonary artery . A 3 mm calcified granuloma seen involving right upper lobe, inferiorly. Minimal dependent subsegmenta l atelectasis is seen bilaterally. No area of consolidation is seen. No pneumothorax or pleural effus ion is noted. The liver parenchyma has a decreased attenuation consistent with fatty infiltration. The liver is mil dly enlarged measuring 19.3 cm in length. Calcified granulomas are seen scattered throughout the sple en. The pancreas, and adrenal glands are within normal limits. A heterogeneously enhancing rounded mass is seen projecting medially from the lower pole of the left kidney. This measures 2.5 cm in greatest diameter. It is concerning for renal cell carcinoma. A 8mm r ounded low-attenuation lesion is seen involving the mid/lower pole of the right kidney. This likely r epresents a cyst. No further imaging evaluation is recommended. Calcified gallstones are seen scattered throughout the gallbladder which is contracted. No free fluid or free air is within the abdomen. There is no evidence of bowel obstruction. A fat-containing ventr al hernia is seen medially superior to the umbilicus. This measures 5.9 cm in transverse diameter. CTA images demonstrate atherosclerotic calcification of the abdominal aorta and its branches. A stent graft extends across an aneurysm of the infrarenal abdominal aorta to the distal common iliac arteri es. The residual aneurysm sac measures 6.2 cm in greatest transverse diameter and 25 cm in greatest A P diameter. Small collections of air are seen within the aneurysmal sac presumably related to the his tory of recent surgery. Coils are seen within the inferior aspect of the aneurysm sac, extending late rally. The stent graft is patent. The origins of both renal arteries are patent. The origins of the c eliac trunk and superior mesenteric artery are patent. The common iliac arteries and their branches a re patent. Faint contrast enhancement along the periphery of the superior aspect of aneurysm sac is s een on the arterial phase which becomes more pronounced and heterogeneous on the delayed images consi stent with a type II endoleak. Contrast is seen within the anterior inferior aspect of the aneurysm s ac projecting to the left of midline near the left common iliac component of the graft concerning for a type III endoleak. Images through the pelvis demonstrate the urinary bladder distended with urine. No free fluid is seen . The patient is post right CURTIS. Mild S-shaped curvature of the thoracolumbar spine is noted. Degener ative changes are seen involving the thoracic and throughout the lumbar spine along with the left hip . IMPRESSION:: 1. No acute abnormality is seen involving the chest. 2. 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 3. Findings concerning for a type III endoleak as discussed above. 3. 2.5 cm solid mass is seen involving the lower pole of the left kidney concerning for renal cell ca rcinoma. Electronically signed by: Raul Squires MD (04/18/2021 4:02 PM) [id number]
[2021-04-18 16:16] LABS: BILIRUBIN,URINE NEGATIVE (NEG); CLARITY,URINE CLEAR; COLOR,URINE YELLOW; NITRITE,URINE NEGATIVE (NEG); PH,URINE 7.5 (<5.0-8.0); PROTEIN,URINE NEGATIVE (NEG-TRACE)
[2021-04-18 16:27] LABS: AMORPHOUS SEDIMENT,UR PRESENT /HPF; BACTERIA,URINE MODERATE /HPF (0-FEW)
--- NOTE | 2021-04-18 16:36 | EKG ---
[facility] [address] [place] [address] Test Date: 2021-04-18 Test Time: 14:17:56 Pat Name: RYAN DOSHI Department: Room: Gender: F [employer] Former: : 1935 Requested By: RK MARTINEZ Order Number: [id number] Reading MD: Watson Pryor MD Measurements Intervals [place] Rate: 71 P: 0 [place]: 110 QRS: -81 QRSD: 188 T: 93 QT: 458 QTc: 503 Interpretive Statements A-V PACED Electronically Signed On 04-22-2021 14:02:41 [employer] by Watson Pryor MD
[2021-04-18 17:08] VITALS: BP 109/66
== END 2021-04-18 17:23 | disposition home or self-care (01) ==
LOC: ER 13:17
DX: S30.1XXA Contusion of abdominal wall, initial encounter (principal); G89.18 Other acute postprocedural pain; N39.490 Overflow incontinence; N64.4 Mastodynia; I10 Essential (primary) hypertension; I25.10 Atherosclerotic heart disease of native coronary artery without angina pectoris; Z95.1 Presence of aortocoronary bypass graft; Z90.710 Acquired absence of both cervix and uterus; Z95.0 Presence of cardiac pacemaker; Z98.51 Tubal ligation status; Z88.1 Allergy status to other antibiotic agents; Z88.2 Allergy status to sulfonamides; X58.XXXA Exposure to other specified factors, initial encounter; Y93.89 Activity, other specified; Y92.89 Other specified places as the place of occurrence of the external cause; Y99.8 Other external cause status
CPT/HCPCS: 36415; 71275; 74174; 80053; 81001; 84484; 85025; 85610; 85730; 87086; 93005; 96374; 99285; J3010; Q9967